=== PATIENT | female | born 1940 | race Caucasian/White ===

== ENCOUNTER → 2017-11-24 14:33 | Outpatient (CLI) | payer MEDICARE, SELFPAY ==
--- NOTE | 2017-11-24 14:45 | RAD_ITS ---
STUDY: X-RAY CHEST REASON FOR EXAM: Female, 77 years old. Shortness of breath TECHNIQUE: Frontal and lateral views of the chest were obtained. COMPARISON: March 10, 2017 FINDINGS: The lungs are underaerated with increased AP diameter on the lateral view. There are increased interstitial markings throughout the lungs. There are no focal airspace opacities. There is no demonstrated pleural abnormality. The cardiac silhouette is normal in size. The mediastinum and hilar regions are unremarkable. Normal visualized pulmonary arteries. There is atherosclerotic calcification of the thoracic aorta. There are diffuse degenerative changes of the visualized spine. There is stable mild compression of a lower thoracic vertebral body. There are degenerative changes in both shoulders. There is no demonstrated abnormality of the visualized upper abdomen. RAD/Chest PA and Lateral IMPRESSION: No acute cardiopulmonary abnormalities or changes. Stable COPD with mild diffuse fibrosis. Electronically Signed: Aparna Dent MD at 23:53 EDT Tel Direct: [phone], Service support ,
[2017-11-24 16:07] LABS: Vitamin D,25 Hydroxy 31.6 ng/mL (29.95-100.01)
[2017-11-24 16:10] LABS: ALB/GLOB Ratio 0.8 RATIO (0.9-2.4); AST(SGOT) 49 U/L (15-37); Alanine Aminotransfer ALT/SGPT 29 U/L (13-56); Albumin, Serum 3.6 g/dL (3.2-5.0); Alkaline Phosphatase 89 U/L (45-117); Anion Gap 8 (5-15); BUN 11 mg/dL (7-18); BUN/Creat Ratio 13.4 RATIO (10-20); Calcium,Total 8.6 mg/dL (8.5-10.1); Chloride 106 mmol/L (98-107); Cholesterol 148 mg/dL (200); Creatinine, Serum 0.82 mg/dL (0.55-1.02); EST Glomerular Filtration Rate 72 mL/min (>60); Est Glom Filt Rate - Afr Amer 87 mL/min (>60); Globulin 4.4 g/dL (2.2-4.2); Glucose 97 mg/dL (74-106); High Density Lipoprotein 73 mg/dL; Magnesium 1.8 mg/dL (1.6-2.6); Potassium 4.4 mmol/L (3.5-5.1); Sodium Level 140 mmol/L (136-145); Triglycerides 102 mg/dL; Very Low Density Lipoprotein 20 mg/dL (5-40)
== END ==
PROVIDERS: Family Provider Internal Medicine; PCP Internal Medicine; Visit Provider Internal Medicine
DX: E78.5 Hyperlipidemia, unspecified (principal); E03.9 Hypothyroidism, unspecified; E55.9 Vitamin D deficiency, unspecified; E83.42 Hypomagnesemia; E87.6 Hypokalemia; J45.909 Unspecified asthma, uncomplicated
CPT/HCPCS: 36415; 71046; 80053; 80061; 82306; 83735; 84443

== ENCOUNTER → 2018-01-13 14:45 | Outpatient (CLI) | payer MEDICARE, SELFPAY ==
--- NOTE | 2018-01-13 14:51 | CT_ITS ---
STUDY: CT CHEST/THORAX WITHOUT CONTRAST REASON FOR EXAM: Female, 77 years old. Restrictive lung disease with hypoxia. RADIATION DOSAGE (If Supplied By Facility): CTDIvol = ( 20.15 ) mGy, DLP = ( 570.74 ) mGycm TECHNIQUE: Transaxial imaging was performed without the administration of intravenous contrast material. Multiplanar coronal and sagittal images were reformatted. Individualized dose optimization techniques were used for this CT. COMPARISON: PA and lateral chest x-ray November 24, 2017. FINDINGS: 5 x 4 x 3 mm noncalcified nodule seen in the superior aspect of the right middle lobe abutting the minor fissure (series 2 image 52, series 602 image 82). 2-3 mm teardrop shaped nodule versus scar seen at the anterior periphery of the right middle lobe on series 2 image 58. There is a lentiform 5 x 3 mm pleural-based nodule in the posterolateral basilar right lower lobe (series 2 image 65, series 602 image 169). 2-3 mm groundglass nodular density seen in the posterolateral right lower lobe just above this (series 2 image 60, series 602 image 176). Linear subsegmental scarring or atelectasis noted in the posterior basilar right lower lobe 1 mm calcified granuloma in the posterior right upper lobe on series 2 image 32. There is focal scarring or subsegmental atelectasis in the inferior left base abutting the diaphragm. There is no demonstrated pleural abnormality. There is borderline cardiomegaly. There is early calcification along the superior aspect of the mitral valve annulus. Normal mediastinum. Normal hilar regions. Normal unenhanced pulmonary arteries. The mid ascending aorta is 4.3 x 4.25 cm (series 602 image 101, series 601 image 130). At the mid aortic arch just beyond the takeoff of left carotid artery the aortic diameter is 3.1 cm. The mid descending thoracic aorta (series 602 image 176, series 601 image 123) is 2.4 x 2.35 cm. There is a severe compression fracture deformity of the T4 vertebrae with some retropulsion of bone into the anterior spinal canal. There are also old healed fracture deformities of the body of the sternum, as well as the posterolateral right fourth rib and posterior left first rib. There are multi-level degenerative changes of the thoracic spine. There is a 10 degree levoscoliosis centered at T9-10. There is no demonstrated abnormality of the visualized upper abdomen. CT/Chest without Contrast IMPRESSION: 1. There are no findings of chronic interstitial fibrosis or emphysematous disease. Minor scarring or subsegmental atelectasis seen in the inferior lung bases. 2. There are a few sub-6 mm pulmonary nodules, as described. Per Fleischner guidelines, in a low risk patient, this does not require specific radiographic follow-up. In a higher-risk patient, one-year follow-up CT is advised to document stability. 3. Borderline cardiac enlargement. 4. There is 4.3 cm fusiform aneurysmal dilatation of the ascending aorta. One might also consider one-year follow-up to document stability here. 5. Severe compression fracture deformity of the T4 vertebra with some retropulsion of bone into the anterior spinal canal. There are also healed fracture deformities of the sternum, posterolateral right fourth rib, and posterior left first rib. There is a 10 degree levoscoliosis centered at T9-10. Electronically Signed: Femi Magana MD at 15:53 EDT , Service support ,
== END ==
PROVIDERS: Family Provider Internal Medicine; PCP Internal Medicine; Visit Provider Internal Medicine Pulmonary Disease
DX: J98.4 Other disorders of lung (principal)
CPT/HCPCS: 71250

== ENCOUNTER → 2018-02-07 12:47 | Outpatient (CLI) | payer MEDICARE, SELFPAY ==
--- NOTE | 2018-02-07 12:53 | ECHOCS_ITS ---
Reason For Study: dyspnea/SOB Procedure This was a 2D Doppler, Color Flow transthoracic echocardiogram. The exam was of poor technical quality due to body habitus. The study was technically difficult. Contrast injection was performed. Exam performed in department. Left Ventricle Normal LV size. Left ventricular systolic function is normal. The estimated ejection fraction is 60 %. No regional wall motion abnormalities noted. Right Ventricle Normal RV size. Normal systolic function. Atria The left atrium is mildly enlarged. Normal right atrium. No doppler evidence for ASD. Mitral Valve There is no mitral annular calcification. Normal mitral valve. Mild (1+) mitral valve insufficiency. Tricuspid Valve Normal tricuspid valve. Mild tricuspid valve insufficiency. Right ventricular systolic pressure estimated to be 38 mmHg. Aortic Valve Trisinus/trileaflet aortic valve. Mild focal aortic valve thickening. Pulmonic Valve The pulmonic valve is not well visualized. Trivial pulmonic valve insufficiency. Great Vessels Normal sized aortic root. Pericardium/Pleural No pericardial effusion. Medication 22 gauge I.V. with prn adaptor inserted into right arm. Diluted definity 3.0ml given slow IV push to enhance endocardial definition. MMode/2D Measurements & Calculations LVIDd: 5.4 cm IVSd: 1.1 cm Ao root diam: 3.4 cm LVIDs: 3.7 cm LVPWd: 1.1 cm LA dimension: 4.0 cm RVDd: 3.0 cm FS: 32.4 % LAV(MOD-bp): 62.0 ml LA A4 area: 21.0 cm2 RA A4 area: 17.8 cm2 LAV(MOD-bp) Indexed: 32.2 ml/m2 LAV(MOD-sp2): 62.5 ml LAV(MOD-sp4): 63.6 ml Doppler Measurements & Calculations MV E max rob: 98.9 cm/sec Lat Peak E' Rob: 10.6 cm/sec Med Peak E' Rob: 9.2 cm/sec MV A max rob: 80.3 cm/sec E/E' lat: 9.3 E/E' med: 10.8 MV E/A: 1.2 Ao V2 max: 179.4 cm/sec LV V1 max: 134.5 cm/sec PA V2 max: 112.5 cm/sec Ao max P.9 mmHg LV V1 max P.2 mmHg TR max rob: 294.6 cm/sec TR max P.7 mmHg Interpretation Summary The study was technically difficult. Contrast injection was performed. Left ventricular systolic function is normal. The estimated ejection fraction is 60 %. The left atrium is mildly enlarged. Mild (1+) mitral valve insufficiency. Mild tricuspid valve insufficiency. Mild focal aortic valve thickening. Trivial pulmonic valve insufficiency. Right ventricular systolic pressure estimated to be 38 mmHg. Transmitral diastolic flow velocities suggest diastolic dysfunction (pseudonormal pattern). Ordering Physician: Sharath Melendez Referring Physician: Sharath Melendez V Performed By: Skylar Leonard, ANOOP, RVT
== END ==
PROVIDERS: Family Provider Internal Medicine; PCP Internal Medicine; Visit Provider Internal Medicine Pulmonary Disease
DX: R06.00 Dyspnea, unspecified (principal); I27.20 Pulmonary hypertension, unspecified
CPT/HCPCS: 93306; Q9957; A4216; C8929

== ENCOUNTER → 2018-04-13 16:57 | Outpatient (CLI) | payer MEDICARE, SELFPAY ==
[2018-04-13 17:37] LABS: Vitamin D,25 Hydroxy 24.3 ng/mL (29.95-100.01)
[2018-04-13 17:38] LABS: ALB/GLOB Ratio 0.9 RATIO (0.9-2.4); AST(SGOT) 21 U/L (15-37); Absolute Lymphocyte Count 1.14 X10^3/ul (0.83-4.51); Absolute Neutrophil Count 3.4 X10^3/uL (2.0-7.7); Alanine Aminotransfer ALT/SGPT 25 U/L (13-56); Albumin, Serum 3.5 g/dL (3.2-5.0); Alkaline Phosphatase 76 U/L (45-117); Anion Gap 8 (5-15); BUN 11 mg/dL (7-18); BUN/Creat Ratio 16.1 RATIO (10-20); Basophil# 0.02 X10^3/uL; Basophil% 0.4 % (0-1); Calcium,Total 8.5 mg/dL (8.5-10.1); Chloride 106 mmol/L (98-107); Cholesterol 148 mg/dL (200); Creatinine, Serum 0.68 mg/dL (0.55-1.02); EST Glomerular Filtration Rate 88 mL/min (>60); Eosinophil# 0.01 X10^3/uL; Eosinophils% 0.2 % (0-5); Est Glom Filt Rate - Afr Amer 107 mL/min (>60); Globulin 3.9 g/dL (2.2-4.2); Glucose 87 mg/dL (74-106); Hematocrit 44.6 % (37-47); Hemoglobin 14.1 g/dl (12.0-15.0); High Density Lipoprotein 79 mg/dL; Lymphocyte # 1.14 X10^3/ul (4.0); Lymphocyte % 22.4 % (19-41); Mean Corp Hgb Conc 31.6 g/gl (32-36); Mean Corpuscular Hgb 31.2 pg (27.0-32.0); Mean Corpuscular Volume 98.7 fL (81-99); Mean Platelet Vol. 10.2 fl (6.2-12.0); Monocyte# 0.51 X10^3/uL; Neutrophil # 3.41 X10^3/uL (2.7-7.7); Neutrophil % 66.8 % (47-70); Platelet Count 235 K/mm3 (150-450); Potassium 3.8 mmol/L (3.5-5.1); Protein, Total 7.4 g/dL (6.4-8.2); RBC Distribution Width CV 14.6 % (11.6-14.6); RBC Distribution Width SD 51.8 fl (35.1-43.9); Red Blood Count 4.52 M/mm3 (4.2-5.4); Sodium Level 142 mmol/L (136-145); Thyroid Stim Hormone (TSH) 0.99 uIU/mL (0.358-3.74); Triglycerides 68 mg/dL; Very Low Density Lipoprotein 14 mg/dL (5-40); White Blood Count 5.1 K/mm3 (4.4-11.0)
[2018-04-13 18:05] LABS: POSITIVE COUNT NO; POSITIVE DIFFERENTIAL NO; POSITIVE MORPHOLOGY NO
== END ==
PROVIDERS: Referring Provider Registered Nurse; Visit Provider Registered Nurse
DX: E78.5 Hyperlipidemia, unspecified (principal); E03.9 Hypothyroidism, unspecified; E55.9 Vitamin D deficiency, unspecified; E83.42 Hypomagnesemia; E87.6 Hypokalemia; Z79.01 Long term (current) use of anticoagulants
CPT/HCPCS: 80053; 80061; 82306; 83735; 84443; 85025

== ENCOUNTER 2018-07-06 06:07 | Day surgery (SDC) | payer MEDICARE, SELFPAY ==
[2018-06-01 10:20] VITALS: BMI 37.6
[2018-07-06 06:38] VITALS: BP 102/46; PULSE 84; RESP 18; TEMP 36.2; O2SAT 95; BMI 36.6
[2018-07-06 06:41] LABS: Prothrombin Time Fingerstick 13.8 SEC (11.9-14.4)
--- NOTE | 2018-07-06 07:30 | COLBX_PTH ---
PATIENT: CULLEN MAYO LOC: EN U#:[id number] AGE/SX: 78/F ROOM: RE07/06/[address]: Dr. Sean cAosta MD : 1940 BED: DIS: 07/06/2018 SPEC #: [id number] RECD: 07/06/18 10:15 STATUS: REUBEN REMeche #: [id number] KARLIE: 07/06/18 07:[address]: Sean Acosta DEPT: SURGICAL PATHOLOGY RECD BY: Patrick Dorantes ENTERED: 07/06/18 11:17 SP TYPE: COLON BX OTHR DR: Dr. Marva Toribio MD Tissues: A - Ascending colon B - Transverse colon Procedures: Surgery Specimen Level IV HEADER OPERATION: Colonoscopy (MAC) PRE-OP DIAGNOSIS: Rectal bleeding; cancer history TISSUE SUBMITTED: A - Ascending colon polyp, B - Transverse colon polyp MICROSCOPIC DIAGNOSIS A. Ascending colon polyp, biopsy: Fragments of tubular adenoma. Fragments of fecal material. B. Transverse colon polyp, biopsy: Fragments of tubular adenoma. 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 MICROSCOPIC DESCRIPTION Slides are reviewed. GROSS DESCRIPTION A - Received in fixative is one container labeled with the patient's name and designated ascending colon. The specimen consists of multiple irregular fragments of light kaminski soft tissue that in aggregate measure 1.5 x 0.5 x 0.1 cm. The specimen is totally submitted in one cassette. B - Received in fixative is one container labeled with the patient's name and designated transverse colon polyp. The specimen consists of multiple irregular fragments of light kaminski soft tissue that in aggregate measure 1.2 x 1.1 x 0.2 cm. The specimen is totally submitted in one cassette. / AM:[place] 07/06/18 TC:1 CPT: 43244 x2
[2018-07-06 07:52] VITALS: BP 102/46; BP 111/60; PULSE 78; RESP 16; TEMP 36.7; O2SAT 94
[2018-07-06 07:55] VITALS: BP 102/46; BP 103/53; PULSE 75; RESP 16; O2SAT 94
--- NOTE | 2018-07-06 07:56 | OP.ENDO_ITS ---
Patient Name: Cha Bills Procedure Date: 07/06/2018 7:28 AM Date of : 1940 Age: 78 Procedure: Colonoscopy Indications: Rectal bleeding Providers: Sean Acosta MD Referring MD: Marva Toribio Medicines: See the Anesthesia note for documentation of the administered medications Patient Profile: This is a 78 year old female. Refer to note in patient chart for documentation of history and physical. Last Colonoscopy: May 2015. Complications: No immediate complications. Procedure: Pre-Anesthesia Assessment: - Prior to the procedure, a History and Physical was performed, and patient medications and allergies were reviewed. The patient's tolerance of previous anesthesia was also reviewed. The risks and benefits of the procedure and the sedation options and risks were discussed with the patient. All questions were answered, and informed consent was obtained. Prior Anticoagulants: The patient has taken Coumadin (warfarin), last dose was 7 days prior to procedure. ASA Grade Assessment: III - A patient with severe systemic disease. After reviewing the risks and benefits, the patient was deemed in satisfactory condition to undergo the procedure. After I obtained informed consent, the scope was passed under direct vision. Throughout the procedure, the patient's blood pressure, pulse, and oxygen saturations were monitored continuously. The adult colonoscope was introduced through the anus and advanced to the cecum, identified by appendiceal orifice and ileocecal valve. The colonoscopy was performed without difficulty. The patient tolerated the procedure well. The quality of the bowel preparation was good. Scope In: 7:33:41 AM Scope Withdrawal Time 0 hours 8 minutes 56 seconds Scope Out: 7:47:48 AM Total Procedure Duration Time 0 hours 14 minutes 7 seconds Findings: Three sessile polyps were found in the transverse colon, proximal transverse colon, distal transverse colon and ascending colon. The polyps were 3 to 7 mm in size. These polyps were removed with a hot snare. Resection and retrieval were complete. The perianal and digital rectal examinations were normal. Pertinent negatives include no palpable rectal lesions. The exam was otherwise without abnormality. Impression: - Three 3 to 7 mm polyps in the transverse colon, in the proximal transverse colon, in the distal transverse colon and in the ascending colon, removed with a hot snare. Resected and retrieved. - The examination was otherwise normal. Recommendation: - Discharge patient to home. - Resume previous diet. - Continue present medications. - Await pathology results. - Repeat colonoscopy in 3 years for surveillance. - Return to my office in 1 week. Procedure Code(s): --- Professional --- 13854, Colonoscopy, flexible; with removal of tumor(s), polyp(s), or other lesion(s) by snare technique Diagnosis Code(s): --- Professional --- D12.3, Benign neoplasm of transverse colon (hepatic flexure or splenic flexure) D12.2, Benign neoplasm of ascending colon K62.5, Hemorrhage of anus and rectum CPT copyright 2017 [employer]. All rights reserved. The codes documented in this report are preliminary and upon credit coordinator review may be revised to meet current compliance requirements. MD Sean Martinez MD 07/06/2018 7:56:05 AM This report has been signed electronically. Number of Addenda: 0 Note Initiated On: 07/06/2018 7:28 AM
[2018-07-06 08:00] VITALS: BP 102/46; BP 112/57; PULSE 75; RESP 16; O2SAT 95
[2018-07-06 08:05] VITALS: BP 102/46; BP 109/57; PULSE 75; RESP 16; TEMP 36.9; O2SAT 95
[2018-07-06 08:33] VITALS: BP 102/46
--- NOTE | 2018-07-26 10:21 | PCM.HP.STD ---
Problem List (1) Rectal bleeding Status: Acute History of Present Illness Date of Admission: 07/06/18 The patient is a 78 year old F for evaluation for colonoscopy per patient has a history of anal cancer. Undergone radiation therapy in the past the last time I did a sigmoidoscopy on her was on May 2015 and it was unremarkable. She has been noting some bright red rectal bleeding on the toilet she has been having normal bowel movements and has not been noticing any pain or discomfort with her bowel movements. She has had some constipation. 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) Z79.01 Essential hypertension (Chronic) I10 Paroxysmal atrial flutter (Acute) I48.92 Paroxysmal atrial fibrillation (Chronic) I48.0 Syncope and collapse (Chronic) R55 Hyperlipidemia (Chronic) E78.5 Hypothyroidism (Chronic) E03.9 Morbid obesity (Chronic) E66.01 Recurrent falls (Chronic) R29.6 DVT (deep venous thrombosis) I82.409 Anxiety F41.9 Cardiomegaly I51.7 GERD (gastroesophageal reflux disease) K21.9 H/O carcinoma in situ of anal canal Z86.008 Rectal bleeding K62.5 Thyroid disorder E07.9 constipation History of cystitis (Resolved) Z87.440 History of forearm fracture (Resolved) Z87.81 closed fracture Atrial flutter (Inactive) I48.92 HTN (hypertension) with goal to be determined (Inactive) I10 History of anxiety (Inactive) Z86.59 History of atrial fibrillation (Inactive) Z86.79 Allergies penicillin G Allergy (Verified 07/14/18 09:14) Itching enoxaparin [From Lovenox] Adverse Reaction (Severe, Verified 07/20/18 09:27) GI upset, itching at injection site codeine Adverse Reaction (Verified 07/14/18 09:14) Upset Stomach Home Medications: Ambulatory Orders Medication Instructions Recorded ALPRAZolam [Xanax] 0.5 mg PO QHS PRN PRN 09/16/15 Potassium Chloride [Klor-Con 10] 10 meq PO BID 09/16/15 Warfarin [Coumadin ([facility])] 1 mg PO TUTH 09/16/15 acetaminophen 325 mg tablet 650 mg PO Q4H PRN 06/28/17 albuterol sulfate HFA 90 1 puff INHALATION Q6H PRN 06/28/17 mcg/actuation aerosol inhaler fluticasone 50 mcg/actuation nasal 1 spray INTRANASAL QDAY PRN 06/28/17 spray,suspension levothyroxine 125 mcg tablet 125 mcg PO QDAY #90 tab 06/28/17 mometasone-formoterol HFA 200 2 puff INHALATION BID 06/28/17 mcg-5 mcg/actuation aerosol inhaler risedronate 35 mg tablet 35 mg PO QWEEK 06/28/17 warfarin 2 mg tablet 2 mg PO SUMOWEFRSA tab 08/30/17 diltiazem CD 240 mg 240 mg PO QDAY #90 cap 01/17/18 capsule,extended release 24 hr atorvastatin 20 mg tablet 20 mg PO QHS #90 tab 04/29/18 cholecalciferol (vitamin D3) 50,000 unit PO QWEEK 06/01/18 50,000 unit capsule Surgical History: Surgical History (Last Reviewed 07/26/18 @ 10:22 by Sean Acosta MD) History of D&C Z98.890 History of cataract removal with insertion of prosthetic lens Z98.49, Z96.1 History of colonoscopy Z98.890 History of tonsillectomy Z98.890, Z90.89 history of anal surgery history of sigmoid colectomy Surgical History: colectomy Smoking Status: Never smoker - *Family History Maternal Family History: Family History (Last Reviewed 07/26/18 @ 10:23 by Sean Acosta MD) Mother Heart disease CAD (coronary artery disease) Father Heart disease CAD (coronary artery disease) Sister CAD (coronary artery disease) COPD (chronic obstructive pulmonary disease) Sister Hypertension Review of Systems Constitutional: Denies: Chills, Fever, Weight Change Cardiovascular: Denies: Chest Pain, Chest Pressure, Chest Tightness, Palpitations Respiratory: Denies: Cough, Hemoptysis, Shortness of breath at rest, Shortness of breath upon exertion, Wheezing Gastrointestinal: Denies: Abdominal Pain, Constipation, Diarrhea, Hematemesis, Nausea, Melena, Vomiting VTE Information - Inpt Only VTE Present on Admission: No VTE Mechan Device Prophylaxis: None VTE Pharm Prophylaxis ordered?: No Reason prophylaxis not ordered:: Treatment Not Indicated - Physical Exam General: Alert, Oriented x3 Lungs: Clear to auscultation Cardiovascular: Regular rate, Regular Rhythm, No murmurs Abdomen: Bowel Sounds Present, Soft, Non Tender, Non-Distended, Obese Vital Signs Temp Pulse Resp BP Pulse Ox 98.4 F 75 16 109/57 L 95 07/06/18 08:05 07/06/18 08:05 07/06/18 08:05 07/06/18 08:05 07/06/18 08:05 Oxygen Delivery Method Room Air Weight: 206 lb 9.17 oz Body Mass Index (BMI) 36.6 Assessment/Plan All Active Problems (Last Reviewed 07/26/18 @ 10:22 by Sean Acosta MD) Rectal bleeding (Acute) Paroxysmal atrial flutter (Acute) Lung nodule (Acute) Ascending aortic aneurysm (Acute 01/13/18) History of cystitis (Resolved) History of forearm fracture (Resolved) My plan is to perform a colonoscopy on the patient. Risk and benefits have been reviewed in great detail with the patient's all questions asked of been answered and she agrees to proceed.
--- OUTSIDE RECORDS SUMMARY | 2018-10-07 07:35 | XMS RPT_ITS ---
:1940 Author Organization [place] Support Name Relationship Address Phone MARLEN BILLS Unavailable [address] + [place] [address] KAYLA, ADRIAN Unavailable . + [place] [address] R Unavailable Unavailable Unavailable FORESTAL, MARLEN Unavailable [address] + [place] [address] KAYLA, ADRIAN Unavailable . + [place] [address] R Unavailable Unavailable Unavailable FORESTAL, MARLEN Unavailable [address] + [place] [address] KAYLA, ADRIAN Unavailable . + [place] [address] R Unavailable Unavailable Unavailable FORESTAL, MARLEN Unavailable [address] + [place] [address] KAYLA, ADRIAN Unavailable . + [place] [address] R Unavailable Unavailable Unavailable FORESTAL, MARLEN Unavailable [address] + [place] [address] KAYLA, ADRIAN Unavailable . + [place] [address] R Unavailable Unavailable Unavailable FORESTAL, MARLEN Unavailable [address] + [place] [address] KAYLA, ADRIAN Unavailable . + [place] [address] R Unavailable Unavailable Unavailable FORESTAL, MARLEN Unavailable [address] + [place] [address] KAYLA, ADRIAN Unavailable . + [place] [address] R Unavailable Unavailable Unavailable FORESTAL, MARLEN Unavailable [address] + [place] [address] KAYLA, ADRIAN Unavailable Unavailable + [place] [address] R Unavailable Unavailable Unavailable FORESTAL, MARLEN Unavailable [address] + [place] [address] KAYLA, ADRIAN Unavailable Unavailable + [place] [address] R Unavailable Unavailable Unavailable FORESTAL, MARLEN Unavailable [address] + [place] [address] KAYLA, ADRIAN Unavailable . + [place] [address] R Unavailable Unavailable Unavailable FORESTAL, MARLEN Unavailable [address] + [place] [address] KAYLA, ADRIAN Unavailable Unavailable + R Unavailable Unavailable Unavailable FORESTAL, MARLEN Unavailable [address] + [place] [address] KAYLA, ADRIAN Unavailable Unavailable + R Unavailable Unavailable Unavailable FORESTAL, MARLEN Unavailable [address] + [place] [address] KAYLA, ADRIAN Unavailable Unavailable + R Unavailable Unavailable Unavailable FORESTAL, MARLEN Unavailable [address] + [place] [address] KAYLA, ADRIAN Unavailable Unavailable + [place] [address] R Unavailable Unavailable Unavailable FORESTAL, MARLEN Unavailable [address] + [place] [address] R Unavailable Unavailable Unavailable FORESTAL, MARLEN Unavailable [address] + [place] [address] R Unavailable Unavailable Unavailable FORESTAL, MARLEN Unavailable [address] + [place] [address] R Unavailable Unavailable Unavailable FORESTAL, MARLEN Unavailable [address] + [place] [address] R Unavailable Unavailable Unavailable Care Team Providers Name Role Phone JESSICA FREGOSO (LIZBETH) Attending Unavailable VEL SANDERSON Referring Unavailable JESSICA FREGOSO (LIZBETH) Attending Unavailable GANTA, VEL Referring Unavailable Ganta, Vel Attending Unavailable West, Sean Attending Unavailable Ganta, Vel Referring Unavailable Ganta, Vel Attending Unavailable Ganta, Vel Attending Unavailable DeFinis, Marleni Attending Unavailable Najma Davis Attending Unavailable Ganta, Vel Referring Unavailable Ganta, Vel Primary Care Unavailable Ganta, Vel Attending Unavailable Ganta, Vel Primary Care Unavailable Ganta, Vel Referring Unavailable Sibilia, Sharath Consulting Unavailable , GUNNER Consulting Unavailable Sibilia, Sharath Attending Unavailable Sibilia, Sharath Referring Unavailable Ganta, Vel Primary Care Unavailable Ganta, Vel Attending Unavailable West, Sean Attending Unavailable Ganta, Vel Referring Unavailable Ganta, Vel Primary Care Unavailable West, Sean Consulting Unavailable Ganta, Vel Attending Unavailable Ganta, Vel Attending Unavailable Sibilia, Sharath Attending Unavailable Sibilia, Sharath Referring Unavailable Ganta, Vel Primary Care Unavailable Tom Mccullough Attending Unavailable Haagen, Jessica Attending Unavailable Haagen, Jessica Referring Unavailable Kika, Sean Attending Unavailable Ganta, Vel Referring Unavailable West, Sean Attending Unavailable Ganta, Vel Primary Care Unavailable Ganta, Vel Referring Unavailable Doris Trent PA-C Attending Unavailable Ganta, Vel Referring Unavailable Ganta, Vel Primary Care Unavailable PROBLEMS PROBLEMS DATE TYPE CONDITION / CODE ATTENDING STATUS SOURCE 04/14/2018 Unknown Z79.01 - [facility] Haagen, Jessica Active [place] (current) use of Community anticoagulants / Hospital Z79.01(ICD-10) Repository 04/14/2018 Unknown E78.5 - Haagen, Jessica Active [place] Hyperlipidemia, Community unspecified / Hospital E78.5(ICD-10) Repository 04/14/2018 Unknown E03.9 - Haagen, Jessica Active [place] Hypothyroidism, Community unspecified / Hospital E03.9(ICD-10) Repository 04/14/2018 Unknown E55.9 - Vitamin D Haagen, Jessica Active [place] deficiency, Community unspecified / Hospital E55.9(ICD-10) Repository 08/02/2015 Active Hyperlipidemia, NA Active [facility] unspecified / Clinic Main E78.5(ICD-10) [place] Repository 07/03/2014 Active Hypomagnesemia / NA Active [facility] E83.42(ICD-10) Clinic Main [place] Repository 07/03/2014 Active [facility] (current) NA Active [facility] use of [facility] Main anticoagulants / [place] Z79.01(ICD-10) Repository 04/13/2018 Active Hypothyroidism, NA Active [facility] unspecified / [facility] Main E03.9(ICD-10) [place] Repository 04/13/2018 Active Hypokalemia / NA Active [facility] E87.6(ICD-10) Clinic Main [place] Repository 04/13/2018 Active Vitamin D NA Active [place] deficiency, [facility] Main unspecified / [facility] E55.9(ICD-10) Repository PROCEDURES PROCEDURES No Procedure Records FoundRESULTS RESULTS HISTORY AND PHYSICAL Observed: 07/26/2018 Status: F Source: [place] EXAM 10:27 AM [facility] REPOSITORY [facility] Medical Records Department [address] [place] [address] History and Physical 07/26/18 1021 MR#: [id number] Acct: [id number] Name: CHA BILLS Rep #: [id number] : 1940 78 From: Sean Acosta MD PCP: Vel Sanderson MD Status: [facility] Location: EN Problem List (1) Rectal bleeding Status: Acute History of Present Illness Date of Admission: 07/06/18 The patient is a 78 year old F for evaluation for colonoscopy per patient has a history of anal cancer. Undergone radiation therapy in the past the last time I did a sigmoidoscopy on her was on May 2015 and it was unremarkable. She has been noting some bright red rectal bleeding on the toilet she has been having normal bowel movements and has not been noticing any pain or discomfort with her bowel movements. She has had some constipation. 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) Essential hypertension (Chronic) Paroxysmal atrial fibrillation (Chronic) Syncope and collapse (Chronic) Hyperlipidemia (Chronic) Hypothyroidism (Chronic) Morbid obesity (Chronic) Recurrent falls (Chronic) Medical History: Medical History (Last Reviewed 07/26/18 @ 10:22 by Sean Acosta MD) [facility] current use of anticoagulant (Chronic) Z79.01 Essential hypertension (Chronic) I10 Paroxysmal atrial flutter (Acute) I48.92 Paroxysmal atrial fibrillation (Chronic) I48.0 Syncope and collapse (Chronic) R55 Hyperlipidemia (Chronic) E78.5 Hypothyroidism (Chronic) E03.9 Morbid obesity (Chronic) E66.01 Recurrent falls (Chronic) R29.6 DVT (deep venous thrombosis) I82.409 Anxiety F41.9 Cardiomegaly I51.7 GERD (gastroesophageal reflux disease) K21.9 H/O carcinoma in situ of anal canal Z86.008 Rectal bleeding K62.5 Thyroid disorder E07.9 constipation History of cystitis (Resolved) Z87.440 History of forearm fracture (Resolved) Z87.81 closed fracture Atrial flutter (Inactive) I48.92 HTN (hypertension) with goal to be determined (Inactive) I10 History of anxiety (Inactive) Z86.59 History of atrial fibrillation (Inactive) Z86.79 Allergies penicillin G Allergy (Verified 07/14/18 09:14) Itching enoxaparin [From Lovenox] Adverse Reaction (Severe, Verified 07/20/18 09:27) GI upset, itching at injection site codeine Adverse Reaction (Verified 07/14/18 09:14) Upset Stomach Home Medications: Ambulatory Orders Medication Instructions Recorded ALPRAZolam [Xanax] 0.5 mg PO QHS PRN PRN 09/16/15 Potassium Chloride [Klor-Con 10] 10 meq PO BID 09/16/15 Surgical History: Surgical History (Last Reviewed 07/26/18 @ 10:22 by Sean Acosta MD) History of D AND C Z98.890 History of cataract removal with insertion of prosthetic lens Z98.49, Z96.1 History of colonoscopy Z98.890 History of tonsillectomy Z98.890, Z90.89 history of anal surgery history of sigmoid colectomy Surgical History: colectomy Smoking Status: Never smoker - *Family History Maternal Family History: Family History (Last Reviewed 07/26/18 @ 10:23 by Sean Acosta MD) Mother Heart disease CAD (coronary artery disease) Father Heart disease CAD (coronary artery disease) Sister CAD (coronary artery disease) COPD (chronic obstructive pulmonary disease) Sister Hypertension Review of Systems Constitutional: Denies: Chills, Fever, Weight Change Cardiovascular: Denies: Chest Pain, Chest Pressure, Chest Tightness, Palpitations Respiratory: Denies: Cough, Hemoptysis, Shortness of breath at rest, Shortness of breath upon exertion, Wheezing Gastrointestinal: Denies: Abdominal Pain, Constipation, Diarrhea, Hematemesis, Nausea, Melena, Vomiting VTE Information - Inpt Only VTE Present on Admission: No VTE Mechan Device Prophylaxis: None VTE Pharm Prophylaxis ordered?: No Reason prophylaxis not ordered:: Treatment Not Indicated - Physical Exam General: Alert, Oriented x3 Lungs: Clear to auscultation Cardiovascular: Regular rate, Regular Rhythm, No murmurs Abdomen: Bowel Sounds Present, Soft, Non Tender, Non-Distended, Obese Vital Signs Temp Pulse Resp BP Pulse Ox 98.4 F 75 16 109/57 L 95 07/06/18 08:05 07/06/18 08:05 07/06/18 08:05 07/06/18 08:05 07/06/18 08:05 Oxygen Delivery Method Room Air Weight: 206 lb 9.17 oz Body Mass Index (BMI) 36.6 Assessment/Plan All Active Problems (Last Reviewed 07/26/18 @ 10:22 by Sean Acosta MD) Rectal bleeding (Acute) Paroxysmal atrial flutter (Acute) Lung nodule (Acute) Ascending aortic aneurysm (Acute 01/13/18) History of cystitis (Resolved) History of forearm fracture (Resolved) My plan is to perform a colonoscopy on the patient. Risk and benefits have been reviewed in great detail with the patient's all questions asked of been answered and she agrees to proceed. 07/26/18 1027 <Electronically signed by Sean Acosta MD> Date Sean Acosta MD Cosigner Signature: Date (if applicable) CC: Vel Sanderson MD; Sean Acosta MD Signed SURGERY VISIT REPORT Observed: 07/18/2018 Status: F Source: [place] 12:53 PM [facility] REPOSITORY [facility] [address] [place] [address] OFFICE VISIT Date of Service: 07/14/18 MR#: [id number] Acct: [id number] Name: CHA BILLS Rep #: [id number] : 1940 Provider: Sean Acosta MD Age/Sex: 78/F Location: [facility] Status: Signed Intake Intake Visit Reasons: Post Op C-Scope 07/06 Chief Complaint: post colonoscopy Heater Furnace Required: No Is patient in pain?: No Allergies penicillin G Allergy (Verified 07/14/18 09:14) Itching codeine Adverse Reaction (Verified 07/14/18 09:14) Upset Stomach Medications ALPRAZolam [Xanax] 0.5 mg PO QHS PRN PRN 09/16/15 [History Confirmed 07/14/18] Potassium Chloride [Klor-Con 10] 10 meq PO BID 09/16/15 [History Confirmed 07/14/18] Warfarin [Coumadin (PBKC)] 1 mg PO TUTH 09/16/15 [History Confirmed 07/14/18] acetaminophen 325 mg tablet 650 mg PO Q4H PRN 06/28/17 [History Confirmed 07/14/18] albuterol sulfate HFA 90 mcg/actuation aerosol inhaler 1 puff INHALATION Q6H PRN 06/28/17 [History Confirmed 07/14/18] fluticasone 50 mcg/actuation nasal spray,suspension 1 spray INTRANASAL QDAY PRN 06/28/17 [History Confirmed 07/14/18] levothyroxine 125 mcg tablet 125 mcg PO QDAY #90 tab 06/28/17 [Rx Confirmed 07/14/18] mometasone-formoterol HFA 200 mcg-5 mcg/actuation aerosol inhaler 2 puff INHALATION BID 06/28/17 [History Confirmed 07/14/18] risedronate 35 mg tablet 35 mg PO QWEEK 06/28/17 [History Confirmed 07/14/18] warfarin 2 mg tablet 2 mg PO SUMOWEFRSA tab 08/30/17 [History Confirmed 07/14/18] diltiazem CD 240 mg capsule,extended release 24 hr 240 mg PO QDAY #90 cap 01/17/18 [Rx Confirmed 07/14/18] atorvastatin 20 mg tablet 20 mg PO QHS #90 tab 04/29/18 [Rx Confirmed 07/14/18] cholecalciferol (vitamin D3) 50,000 unit capsule 50,000 unit PO QWEEK 06/01/18 [History Confirmed 07/14/18] Enoxaparin [Lovenox] 90 mg SUBCUT Q12@0600,1800 07/04/18 [History Confirmed 07/14/18] Is last menstrual period known: No Post menopausal: Yes Patient : No Subjective Details: Patient status post a colonoscopy on 07/06/2018. Patient was noted to have tubular adenomas of both the transverse and ascending colon. Rest of her colonoscopy was unremarkable. He is not complaining of any abdominal pain at this Objective Details: Patient's abdomen is soft and obese Assessment AND Plan Problems 1. Colon polyp K63.5 Plan Patient will need to have another colonoscopy in 3 years Coding Level of Care Code Off vis,est,level 2 Diagnoses Colon polyp K63.5 07/18/18 1253 <Electronically signed by Sean Acosta MD> Date Sean Acosta MD [facility] Signature: Date (if applicable) CC: Vel Sanderson MD CNPN Observed: 07/07/2018 Status: COMPLETED Source: [place] 12:00 AM [facility] REPOSITORY Telephone (PHARMN) CHA BILLS ([id number]) 1940 F Date Time Provider Department 07/07/18 PHARMACIST PHARMN During your visit today, we recorded the following information about you: Virginia Nelson 07/07/2018 11:03 AM Signed Spoke with Kaylan (ph: [phone]) from Dr. Elam'as office who advised she received a fax today with patient's INR results from yesterday (07/06/2018) INR result was 1.2. Routing to pharmacist to review. Yamilet Nelson LPN Pharmacy, Anticoagulation Clinic [facility] 07/07/2018 11:27 AM Signed Spoke to patient re: LMWH Bridge S/p (Name of procedure - colonoscopy on 07/06) Patient cleared to resume anticoagulation by Physician performing the procedure Plan: Patient advised to take warfarin (as per previous pharmacist note) Patient advised to take warfarin: 4mg Th / 3mg SSM (07/07-07/10) Patient advised to take enoxaparin 90mg q12h - she has about 10 syringes Next INR draw: home INR on 07/11. Pt was advised to call if there are any problems with bleeding/bruising or changes in medications or diet. Patient verbalized understanding of instructions. ? Pt is still not currently enrolled in [employer]. She uses [employer]. Will reach out to [employer]. Lora Ascencio, [facility] 07/07/2018 1:31 PM Signed Un update from [employer] on Cha's joining the [employer] home INR monitoring program. Per [employer], patient needs to call [facility] and cancel program to join [employer]. The patient was contacted and advised to contact [facility] for [employer] to take over and the anticoagulation clinic INR monitoring program to do the follow ups. The patient refused, she was under the impression that [employer] will cancel her [facility] program. The patient states that after the year, she might consider joining the program; meanwhile, she will continue with [facility]. The anticoagulation clinic will not contact Cha; and she will be sent back to the care of her physician. The patient verbalized understanding of instructions. Virginia Nelson 07/07/2018 2:12 PM Signed Patient stated her carpet inspector finished Dr. Welch in [place] will continue to monitor her INR. Pharmacy Anticoagulation Clinic Discharge completed at this time. Patient may be re-referred, if deemed appropriate. Yamilet Nelson LPN Pharmacy, Anticoagulation Clinic Casie Hatfield RN 07/07/2018 3:25 PM Signed Patient calls to confirm that yes, Dr. Mccullough will be handling her INR from now on but that she still loves Dr. Sanderson. Casie Hatfield RN Allergies As of Date: 07/07/2018 Noted Allergy Reaction CODEINE 10/13/2010 16 - Unknown PENICILLINS 10/13/2010 16 - Unknown Date Reviewed: 04/13/2018 Reviewed by: Lynnette Skelton Mold Inspector - Fully Assessed Reason for Visit: PAC TRANSFER OF CARE [Other] Reason For Visit History Recorded Prescriptions as of 07/07/2018 Sig: * ACETAMINOPHEN 500 MG TABLET Take by mouth as needed. * ALBUTEROL SULFATE HFA 90 MCG/* Inhale 1 Puff as instructed o* ALPRAZOLAM 0.5 MG TABLET Take 1 tablet by mouth at bed* VITAMIN C ORAL Take by mouth. ATORVASTATIN 20 MG TABLET Take 1 tablet by mouth once d* VITAMIN D-3 ORAL Take by mouth. CHOLECALCIFEROL (VITAMIN D3) * Take 1 capsule by mouth once * DILTIAZEM SR 240 MG 24 HR CAP Take 240 mg by mouth once fatimah* DOCUSATE SODIUM 100 MG CAPSULE Take 1 capsule by mouth twice* ENOXAPARIN 100 MG/ML SUBCUTAN* Inject 0.9 mL subcutaneously * * FLUTICASONE 50 MCG/ACTUATION * Use 1 Hope in each nostril o* LEVOTHYROXINE 125 MCG TABLET Take 150mcg daily on the week* LEVOTHYROXINE 150 MCG TABLET Take 150mcg daily on the week* MOMETASONE-FORMOTEROL HFA 200* Inhale 2 Inhalation as instru* POTASSIUM CHLORIDE ER 10 MEQ * Take 1 capsule by mouth twice* RISEDRONATE 35 MG TABLET Take 1 tablet by mouth once e* WARFARIN 1 MG TABLET 2mg MonFri and 1mg other days WARFARIN 2 MG TABLET Take 1 tablet by mouth once d* Problem List As Of Date 07/07/2018 Noted Resolved Other symptoms involving digestive system(787.9*INVALID FOR*12/20/2013 Non-healing surgical wound [T81.89XA] INVALID FOR*12/20/2013 Other malignant neoplasm of other specified sit*INVALID FOR*12/20/2013 Anal cancer (HCC) [C21.0] INVALID FOR* More... DVT (deep venous thrombosis) (HCC) [I82.409] INVALID FOR*10/21/2016 More... Urinary frequency [R35.0] INVALID FOR*12/20/2013 Hypomagnesemia [E83.42] INVALID FOR* More... Unspecified malignant neoplasm of other specifi*INVALID FOR*12/20/2013 Abnormal barium enema [R93.3] INVALID FOR*12/20/2013 Abnormal x-ray [R93.89] INVALID FOR*12/20/2013 Antithrombin deficiency (HCC) [D68.59] INVALID FOR* More... Post-traumatic wound infection (HCC) [T14.8XXA,*INVALID FOR* More... Wound discharge [T14.8XXA] INVALID FOR*12/20/2013 More... Chronic anticoagulation [Z79.01] INVALID FOR* More... Anxiety [F41.9] INVALID FOR* More... A-fib (HCC) [I48.91] INVALID FOR* More... [place] (obstructive sleep apnea) [G47.33] INVALID FOR* More... COPD (chronic obstructive pulmonary disease) (H*INVALID FOR* More... Hypothyroid [E03.9] INVALID FOR* More... Hyperlipidemia with target LDL less than 100 [E*INVALID FOR* More... SUMMARY [V999.95] INVALID FOR* More... Preventive measure [Z29.9] INVALID FOR* More... Hearing loss [H91.90] INVALID FOR* More... Insomnia [G47.00] INVALID FOR* More... Tremors of nervous system [R25.1] INVALID FOR* More... Cancer of skin, squamous cell [C44.92] INVALID FOR* Accidental fall [W19.XXXA] INVALID FOR* More... Age-related osteoporosis with current pathologi*INVALID FOR* More... Vitamin D deficiency [E55.9] INVALID FOR* Encounter Status:Closed by LUDIVINA (PHARMACIST)LORA on 07/07/18 OPERATIVE REPORT - Observed: 07/06/2018 Status: F Source: [place] ENDOSCOPY 7:56 AM [facility] REPOSITORY [facility] Medical Records Department [address] [place] [address] Operative Report - Endoscopy MR#: [id number] Acct: [id number] Name: GAELCHA Dane Rep #: [id number] : 1940 78 From: Sean Acosta MD PCP: Vel Sanderson MD Status: [facility] Patient Name: Cha Bills Procedure Date: 07/06/2018 7:28 AM Date of : 1940 Age: 78 Procedure: Colonoscopy Indications: Rectal bleeding Providers: Sean Acosta MD Referring MD: Vel Sanderson Medicines: See the Anesthesia note for documentation of the administered medications Patient Profile: This is a 78 year old female. Refer to note in patient chart for documentation of history and physical. Last Colonoscopy: May 2015. Complications: No immediate complications. Procedure: Pre-Anesthesia Assessment: - Prior to the procedure, a History and Physical was performed, and patient medications and allergies were reviewed. The patient's tolerance of previous anesthesia was also reviewed. The risks and benefits of the procedure and the sedation options and risks were discussed with the patient. All questions were answered, and informed consent was obtained. Prior Anticoagulants: The patient has taken Coumadin (warfarin), last dose was 7 days prior to procedure. ASA Grade Assessment: III - A patient with severe systemic disease. After reviewing the risks and benefits, the patient was deemed in satisfactory condition to undergo the procedure. After I obtained informed consent, the scope was passed under direct vision. Throughout the procedure, the patient's blood pressure, pulse, and oxygen saturations were monitored continuously. The adult colonoscope was introduced through the anus and advanced to the cecum, identified by appendiceal orifice and ileocecal valve. The colonoscopy was performed without difficulty. The patient tolerated the procedure well. The quality of the bowel preparation was good. Scope In: 7:33:41 AM Scope Withdrawal Time 0 hours 8 minutes 56 seconds Scope Out: 7:47:48 AM Total Procedure Duration Time 0 hours 14 minutes 7 seconds Findings: Three sessile polyps were found in the transverse colon, proximal transverse colon, distal transverse colon and ascending colon. The polyps were 3 to 7 mm in size. These polyps were removed with a hot snare. Resection and retrieval were complete. The perianal and digital rectal examinations were normal. Pertinent negatives include no palpable rectal lesions. The exam was otherwise without abnormality. Impression: - Three 3 to 7 mm polyps in the transverse colon, in the proximal transverse colon, in the distal transverse colon and in the ascending colon, removed with a hot snare. Resected and retrieved. - The examination was otherwise normal. Recommendation: - Discharge patient to home. - Resume previous diet. - Continue present medications. - Await pathology results. - Repeat colonoscopy in 3 years for surveillance. - Return to my office in 1 week. Procedure Code(s): --- Professional --- 98809, Colonoscopy, flexible; with removal of tumor(s), polyp(s), or other lesion(s) by snare technique Diagnosis Code(s): --- Professional --- D12.3, Benign neoplasm of transverse colon (hepatic flexure or splenic flexure) D12.2, Benign neoplasm of ascending colon K62.5, Hemorrhage of anus and rectum CPT copyright 2017 [employer] [employer]. All rights reserved. The codes documented in this report are preliminary and upon basic sciences dean review may be revised to meet current compliance requirements. MD Sean Martinez MD 07/06/2018 7:56:05 AM This report has been signed electronically. Number of Addenda: 0 Note Initiated On: 07/06/2018 7:28 AM 07/06/18 0756 Date Sean Acosta MD Cosigner Signature: Date (if indicated) CC: Vel Sanderson MD; Sean Acosta MD Date Dictated: 07/06/18 0728 Date Transcribed: Spray Dry Operator: DP Signed COLON BIOPSY (CHOOSE Observed: 07/06/2018 Status: F Source: [place] SITE) 7:30 AM [facility] REPOSITORY Patient: CHA BILLS : 1940 (78/) Acct Num: [id number] Phys: Sean Acosta MD Unit Num: [id number] Loc: EN Specimen: [id number] Received: 07/06/18 - 1015 Spec Type: COLON BX TISSUES 1 TISSUES: A. Ascending colon B. 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 GROSS DESCRIPTION A - Received in fixative is one container labeled with the patient's name and designated ascending colon. The specimen consists of multiple irregular fragments of light kaminski soft tissue that in aggregate measure 1.5 x 0.5 x 0.1 cm. The specimen is totally submitted in one cassette. B - Received in fixative is one container labeled with the patient's name and designated transverse colon polyp. The specimen consists of multiple irregular fragments of light kaminski soft tissue that in aggregate measure 1.2 x 1.1 x 0.2 cm. The specimen is totally submitted in one cassette. / AM: 07/06/18 TC:1 CPT: 55098 x2 HEADER OPERATION: Colonoscopy (MAC) PRE-OP DIAGNOSIS: Rectal bleeding; cancer history TISSUE SUBMITTED: A - Ascending colon polyp, B - Transverse colon polyp MICROSCOPIC DESCRIPTION Slides are reviewed. MICROSCOPIC DIAGNOSIS A. Ascending colon polyp, biopsy: Fragments of tubular adenoma. Fragments of fecal material. B. Transverse colon polyp, biopsy: Fragments of tubular adenoma. SJ:america 07/07/18 Signed Sid Patel MD 07/07/18 <signature on file> Performed By: #### PCOLBX #### [facility] [address] [place] [address], [id number] PROTIME W/INR Collected: 07/06/2018 Status: F Source: MAJESTIC FINGERSTICK 6:37 AM [facility] REPOSITORY TYPE CODE TESTS RESULT OUT OF RANGE REFERENCE UNITS LAB L9200.1001 11.9-14.4 SEC Normal PROTIME ISTAT 13.8 Result Comment: Reference Range 11.9 - 14.4 LAB L9200.2000 Normal INR ISTAT 1.20 Result Comment: Critical Value > 3.5 Performed By: #### L9200.0000 #### [facility] Point of Care [address] [place], [place] [address] [address] CNPN Observed: 07/04/2018 Status: COMPLETED Source: [place] 12:00 AM [facility] REPOSITORY Telephone (PHARMN) GAELCHA Vela ([id number]) 1940 F Date Time Provider Department 07/04/18 PHARMACIST HOPE During your visit today, we recorded the following information about you: Johnny Guzman LPN, [employer] UNDERWRITER 07/04/2018 1:45 PM Signed Patient contacted PAC concerned that she is getting conflicting information regarding Lovenox dosing, pre and post procedure. She is unclear on dosing and has questions and concerns and would like to speak with Pharmacist directly. Advised that MD performing procedure will need to provide medical clearance to resume Lovenox post procedure based on anticipated amount of bleeding ( if at all) following Colonoscopy. Patient is requesting return call to [phone] to discuss dosing. PT INR (no units) Date Value 06/16/2018 2.8 (EXT) 06/10/2018 2.6 06/04/2018 1.6 Johnny Guzman LPN, Pharmacy Anticoagulation Clinic PENNY ALLRED PHARMACIST 07/04/2018 2:17 PM Signed Called patient to discuss her concerns. Reviewed dosing with her for 07/04-07/06: 07/04?- Enoxaparin 90mg sc q12hrs 07/05?- Enoxaparin 90mg sc morning only 07/06?- Procedure day; resume enoxaparin 90mg sq q12hrs?+ warfarin when directed post-procedure; continue enoxaparin until INR >?2.0 or patient's INR Asked her to inuquire to the non-[facility] physician team that it is acceptable to resume her anticoagulation post-op. Advised that I would reach out to her on Wednesday - 07/06 post-colonoscopy to touch base re: warfarin and Lovenox dosing. Penny Allred, PharmKasie Nelson 07/06/2018 11:17 AM Signed Spoke with patient who stated MD advised her to contact PAC regarding resuming anticoagulation s/p procedure. Patient can be reached at [phone]. Yamilet Nelson LPN Pharmacy, Anticoagulation Clinic PENNY ALLRED, PHARMACIST 07/06/2018 12:02 PM Signed Spoke to patient re: LMWH Bridge S/p (Name of procedure - colonoscopy) today Patient cleared to resume anticoagulation by Physician performing the procedure - non [facility] doctor. She was advised to resume tomorrow - 07/07. Plan: Patient advised to take warfarin: 4mg Th / 3mg SSM (07/07-07/10) Patient advised to take enoxaparin 90mg q12h - she has about 10 syringes Next INR draw: home INR on 07/11. Pt was advised to call if there are any problems with bleeding/bruising or changes in medications or diet. Patient verbalized understanding of instructions. Pt is still not currently enrolled in [employer]. She uses [employer]. Will reach out to [employer]. Penny Allred, PharmD Allergies As of Date: 07/04/2018 Noted Allergy Reaction CODEINE 10/13/2010 16 - Unknown PENICILLINS 10/13/2010 16 - Unknown Date Reviewed: 04/13/2018 Reviewed by: Lynnette Skelton Mold Inspector - Fully Assessed Reason for Visit: Patient Update [9284] Visit Diagnosis:Atrial fibrillation, unspecified type (HCC) [I48.91] Prescriptions as of 07/04/2018 Sig: * ACETAMINOPHEN 500 MG TABLET Take by mouth as needed. * ALBUTEROL SULFATE HFA 90 MCG/* Inhale 1 Puff as instructed o* ALPRAZOLAM 0.5 MG TABLET Take 1 tablet by mouth at bed* VITAMIN C ORAL Take by mouth. ATORVASTATIN 20 MG TABLET Take 1 tablet by mouth once d* VITAMIN D-3 ORAL Take by mouth. CHOLECALCIFEROL (VITAMIN D3) * Take 1 capsule by mouth once * DILTIAZEM SR 240 MG 24 HR CAP Take 240 mg by mouth once fatimah* DOCUSATE SODIUM 100 MG CAPSULE Take 1 capsule by mouth twice* ENOXAPARIN 100 MG/ML SUBCUTAN* Inject 0.9 mL subcutaneously * * FLUTICASONE 50 MCG/ACTUATION * Use 1 Hope in each nostril o* LEVOTHYROXINE 125 MCG TABLET Take 150mcg daily on the week* LEVOTHYROXINE 150 MCG TABLET Take 150mcg daily on the week* MOMETASONE-FORMOTEROL HFA 200* Inhale 2 Inhalation as instru* POTASSIUM CHLORIDE ER 10 MEQ * Take 1 capsule by mouth twice* RISEDRONATE 35 MG TABLET Take 1 tablet by mouth once e* WARFARIN 1 MG TABLET 2mg MonFri and 1mg other days WARFARIN 2 MG TABLET Take 1 tablet by mouth once d* Problem List As Of Date 07/04/2018 Noted Resolved Other symptoms involving digestive system(787.9*INVALID FOR*12/20/2013 Non-healing surgical wound [T81.89XA] INVALID FOR*12/20/2013 Other malignant neoplasm of other specified sit*INVALID FOR*12/20/2013 Anal cancer (HCC) [C21.0] INVALID FOR* More... DVT (deep venous thrombosis) (HCC) [I82.409] INVALID FOR*10/21/2016 More... Urinary frequency [R35.0] INVALID FOR*12/20/2013 Hypomagnesemia [E83.42] INVALID FOR* More... Unspecified malignant neoplasm of other specifi*INVALID FOR*12/20/2013 Abnormal barium enema [R93.3] INVALID FOR*12/20/2013 Abnormal x-ray [R93.89] INVALID FOR*12/20/2013 Antithrombin deficiency (HCC) [D68.59] INVALID FOR* More... Post-traumatic wound infection (HCC) [T14.8XXA,*INVALID FOR* More... Wound discharge [T14.8XXA] INVALID FOR*12/20/2013 More... Chronic anticoagulation [Z79.01] INVALID FOR* More... Anxiety [F41.9] INVALID FOR* More... A-fib (HCC) [I48.91] INVALID FOR* More... SALENA (obstructive sleep apnea) [G47.33] INVALID FOR* More... COPD (chronic obstructive pulmonary disease) (H*INVALID FOR* More... Hypothyroid [E03.9] INVALID FOR* More... Hyperlipidemia with target LDL less than 100 [E*INVALID FOR* More... SUMMARY [V999.95] INVALID FOR* More... Preventive measure [Z29.9] INVALID FOR* More... Hearing loss [H91.90] INVALID FOR* More... Insomnia [G47.00] INVALID FOR* More... Tremors of nervous system [R25.1] INVALID FOR* More... Cancer of skin, squamous cell [C44.92] INVALID FOR* Accidental fall [W19.XXXA] INVALID FOR* More... Age-related osteoporosis with current pathologi*INVALID FOR* More... Vitamin D deficiency [E55.9] INVALID FOR* Encounter Status:Closed by JOHNNY GUZMAN on 07/04/18 SURGERY VISIT REPORT Observed: 06/02/2018 Status: F Source: MAJ[place] 10:53 AM [facility] REPOSITORY [facility] [address] [place] [address] [address] [place] [address] OFFICE VISIT Date of Service: 06/01/18 MR#: [id number] Acct: [id number] Name: CHA BILLS Rep #: [id number] : 1940 Provider: Sean Acosta MD Age/Sex: 78/F Location: [facility] Status: Signed Intake Vital Signs06/01/18 Height 5 ft 0.5 in 06/01/18 Weight: 196 lb 06/01/18 Body Mass Index (BMI) 37.6 Intake Visit Reasons: C-Scope Consult per patient - due in Nov [employer] Furnace Required: No Is patient in pain?: No Allergies penicillin G Allergy (Verified 06/01/18 10:21) Itching codeine Adverse Reaction (Verified 06/01/18 10:21) Upset Stomach Medications ALPRAZolam [Xanax] 0.5 mg PO QHS PRN PRN 09/16/15 [History Confirmed 06/01/18] Potassium Chloride [Klor-Con 10] 10 meq PO BID 09/16/15 [History Confirmed 06/01/18] Warfarin [Coumadin ([facility]KC)] 1 mg PO DAILY 09/16/15 [History Confirmed 06/01/18] acetaminophen 325 mg tablet 650 mg PO Q4H PRN 06/28/17 [History Confirmed 06/01/18] albuterol sulfate HFA 90 mcg/actuation aerosol inhaler 1 puff INHALATION Q6H 06/28/17 [History Confirmed 06/01/18] fluticasone 50 mcg/actuation nasal spray,suspension 1 spray INTRANASAL QDAY PRN 06/28/17 [History Confirmed 06/01/18] levothyroxine 125 mcg tablet 125 mcg PO QDAY #90 tab 06/28/17 [Rx Confirmed 06/01/18] mometasone-formoterol HFA 200 mcg-5 mcg/actuation aerosol inhaler 2 puff INHALATION BID 06/28/17 [History Confirmed 06/01/18] kxzvaeze-ytejjos-zdkc-lutein tablet mcg PO 06/28/17 [History Confirmed 06/01/18] risedronate 35 mg tablet 35 mg PO QWEEK 06/28/17 [History Confirmed 06/01/18] warfarin 2 mg tablet 2 mg PO 2XW tab 08/30/17 [History Confirmed 06/01/18] diltiazem CD 240 mg capsule,extended release 24 hr 240 mg PO QDAY #90 cap 01/17/18 [Rx Confirmed 06/01/18] atorvastatin 20 mg tablet 20 mg PO QHS #90 tab 04/29/18 [Rx Confirmed 06/01/18] cholecalciferol (vitamin D3) 50,000 unit capsule 50,000 unit PO QWEEK 06/01/18 [History Confirmed 06/01/18] imiquimod 5 % topical cream packet 1 applic TOPICAL 5XW 06/01/18 [History Confirmed 06/01/18] [facility] Medical History Essential hypertension (Chronic) Paroxysmal atrial flutter (Acute) Paroxysmal atrial fibrillation (Chronic) Syncope and collapse (Chronic) Hyperlipidemia (Chronic) Hypothyroidism (Chronic) Morbid obesity (Chronic) Recurrent falls (Chronic) DVT (deep venous thrombosis) (Acute) Anxiety (Chronic) Cardiomegaly (Chronic) GERD (gastroesophageal reflux disease) (Chronic) 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) Rectal bleeding (Chronic) Thyroid disorder (Chronic) constipation (Chronic) History of cystitis (Resolved) History of forearm fracture (Resolved) Atrial flutter (Inactive) HTN (hypertension) with goal to be determined (Inactive) History of anxiety (Inactive) History of atrial fibrillation (Inactive) Surgical History History of D AND C (Chronic) History of cataract removal with insertion of prosthetic lens (Chronic) History of colonoscopy (Chronic) History of tonsillectomy (Chronic) history of anal surgery (Chronic) history of sigmoid colectomy (Chronic) Family History Mother Heart disease CAD (coronary artery disease) Father Heart disease CAD (coronary artery disease) Sister CAD (coronary artery disease) COPD (chronic obstructive pulmonary disease) Sister Hypertension Social History Smoking Status: Former smoker alcohol intake: current alcohol intake frequency: holidays/special occasions only Alcohol type: wine substance use type: does not use what type of physical activity do you participate in: none HPI HPI HPI: CHA BILLS, is a 78 F who presents to the office today for evaluation for colonoscopy per patient has a history of anal cancer. Undergone radiation therapy in the past the last time I did a sigmoidoscopy on her was on May 2015 and it was unremarkable. She has been noting some bright red rectal bleeding on the toilet she has been having normal bowel movements and has not been noticing any pain or discomfort with her bowel movements. She has had some constipation. ROS General General: Yes weight change and fatigue; no appetite, colon cancer, breast cancer or weakness HEENT HEENT: No difficulty swallowing, eye injury, eye surgery, swollen glands or hoarseness Endo Endocrine: Yes thyroid disease; no diabetes mellitus, thyroid cancer, Hair loss, heat intolerance or cold intolerance Skin Skin: Yes rash; no changing moles Breast Breast: No left breast lump, right breast lump, nipple discharge, breast pain, abnormal mammogram, abnormal US or breast enlargement Musc Musculoskeletal: No back problems, arthritis, rheumatoid arthritis, gout or joint pain Cardio Cardiovascular: Yes atrial fibrillation; no murmur, pacemaker, heart disease, high blood pressure, heart attack, heart stent, palpitations, shortness of breat with exertion or chest pain Psych Psychiatric: Yes depression and anxiety; no hearing voices Resp Respiratory: Yes cough, Yes COPD, Yes asthma, Yes emphysema, No shortness of breath, No sleep apnea, No wheezing Gastro Gastrointestinal: Yes constipation, No abdominal pain, No nausea or vomiting, No diarrhea, No blood in stool, No acid reflux, No hemorrhoids, No ulcers, No gallbladder problem, No black,tarry stools Pillo Hematologic: Yes blood thinners, Yes blood clots, No blood disorders, No bleeding, No anemia Neuro Neurologic: No system reviewed and no additional complaints, except as docu, No as per HPI, No abnormal walking, No abnormal hearing, No abnormal movements, No abnormal speech, No behavioral changes, No burning sensations, No confusion, No seizure-like activity, No unsteadiness, No dizziness, No localized weakness, No frequent falls, No headache(s), No lack of coordination, No loss of vision, No memory loss, No numbness, No other visual disturbances, No radiating pain, No restless legs, No sensory deficit, No fainting, No tingling, No tremor(s), No weakness, No other Exam Const General: well developed, no acute distress, well hydrated Orientation: oriented to person, oriented to place, oriented to time [facility] Head: normocephalic, atraumatic Ears: external ears normal Mouth: moist mucous membranes Eyes Sclera: sclerae normal Pupils: normal by confrontation Neck Neck: no lymphadenopathy noted Neck mass: No Thyroid: symmetrical, thyroid normal Chest Chest palpation AND inspection: normal inspection of the chest Breast Palpation: No nipple discharge Resp Effort AND Inspection: normal respiratory effort Auscultation: clear to auscultation bilaterally Percussion: percussion normal Cardio Rate: regular rate Rhythm: regular rhythm Heart Sounds: no murmurs GI Inspection: obesity Palpation: soft, no masses, no hepatosplenomegaly, nontender Rectal Exam: other Other: Rectal exam deferred. Extrem General: no clubbing, cyanosis or edema, normal to inspection Assessment AND Plan Problems 1. Rectal bleeding K62.5 2. History of anal cancer Z85.048 Plan I have discussed the above with the patient. I have offered the patient colonoscopy for evaluation. I have explained the risks/benefits of the procedure and described the procedure. I have discussed the risks with the patient, including but not limited to: infection, bleeding, perforation of the GI tract requiring emergency surgery, inability to complete the procedure, injury to any internal organs, complications of anesthesia, etc. - the patient understands and agrees to proceed. I have answered all the patient's questions to the patient's satisfaction and the patient has no further questions. The patient has been given instructions for the colon cleansing preparation. Coding Level of Care Code Off vis,new,level 3 Diagnoses Rectal bleeding K62.5 History of anal cancer Z85.048 06/02/18 1053 <Electronically signed by Sean Acosta MD> Date Sean Acosta MD Cosigner Signature: Date (if applicable) CC: Vel Sanderson MD CNPN Observed: 05/30/2018 Status: COMPLETED Source: [place] 12:00 AM [facility] REPOSITORY Telephone (PHARLN) CHA BILLS ([id number]) 1940 F Date Time Provider Department 05/30/18 CHALINO (PHARMACIST)DAYANARA During your visit today, we recorded the following information about you: PENNY ALLRED, PHARMACIST 05/30/2018 4:42 PM Signed Spoke about the home monitoring testing. She is open to this program but her insurance will need more information from [employer] first. Also, the referral will need signed by Dr. Sanderson as well. Pt spoke to a case manger about this - Kyle Muniz (with [employer]). His number is [phone] ext. [phone]. Penny Allred, PharmD Pharmacy Anticoagulation Clinic Lora Ascencio Pharmacist 06/02/2018 2:24 PM Signed Spoke to patient about referral letter. Pt states that Dr Sanderson signed the letter. (Still pending) Pt states that her INR will be checked on Sunday 06/03 and since Referral letter was not cosigned, pt will call on her INR result to MD cynthia and Reyna. Pt will test INR next week on 06/06 d/t the hols; then pt will test every Helped and sent the home INR questionnaire, while on the phone, patient answered all questions. Pt will be undergoing Colonoscopy in June. See questionnaire. Shae Bauer, PSR 06/06/2018 3:43 PM Signed Pt ret'd call and has questions regarding home INR testing. [phone] PENNY ALLRED PHARMACIST 06/06/2018 4:34 PM Signed Called pt back - advised her that we are waiting on 2 things - her Epic referral to be co-signed, and her prior auth to go through from her insurance to allow for the home monitoring program. Pt advised that we will contact her once those are done. Pt advised to test on Wednesday the as she just tested on 06/04. Hopefully we will be monitoring the results by that time, otherwise the results will still be sent to Dr. Sanderson. Penny Allred, Bettye Pharmacy Anticoagulation Clinic PENNY ALLRED PHARMACIST 06/10/2018 1:30 PM Signed Pt did test toady with results fowraded to Dr. Sanderson. PT INR (no units) Date Value 06/10/2018 2.6 06/04/2018 1.6 05/27/2018 3.1(EXT) She was already called re: results and advised to test in a week (about 06/16). Pt's referral has not been signed yet - status is pending. Dr. Sanderson, if you would like us to manage her INR results at this time, may you signed the pending order for the Anticoag/coumadin clinic pharm - home INR monitoring program? Thanks , Penny Allred, Bettye Pharmacy Anticoagulation Clinic Allergies As of Date: 05/30/2018 Noted Allergy Reaction CODEINE 10/13/2010 16 - Unknown PENICILLINS 10/13/2010 16 - Unknown Date Reviewed: 04/13/2018 Reviewed by: Lynnette Skelton Mold Inspector - Fully Assessed Reason for Visit: Anticoagulation - Initial Consult [144] Cmt: Home INR Test Program Visit Diagnosis:Atrial fibrillation, unspecified type (HCC) [I48.91] Prescriptions as of 05/30/2018 Sig: POTASSIUM CHLORIDE ER 10 MEQ * Take 1 capsule by mouth twice* RISEDRONATE 35 MG TABLET Take 1 tablet by mouth once e* WARFARIN 2 MG TABLET Take 1 tablet by mouth once d* ALPRAZOLAM 0.5 MG TABLET Take 1 tablet by mouth at bed* X CHOLECALCIFEROL (VITAMIN D3) * Take 1 capsule by mouth once * DOCUSATE SODIUM 100 MG CAPSULE Take 1 capsule by mouth twice* WARFARIN 1 MG TABLET 2mg MonFri and 1mg other days LEVOTHYROXINE 150 MCG TABLET Take 150mcg daily on the week* LEVOTHYROXINE 125 MCG TABLET Take 150mcg daily on the week* VITAMIN D-3 ORAL Take by mouth. VITAMIN C ORAL Take by mouth. DILTIAZEM SR 240 MG 24 HR CAP Take 240 mg by mouth once fatimah* ATORVASTATIN 20 MG TABLET Take 1 tablet by mouth once d* MOMETASONE-FORMOTEROL HFA 200* Inhale 2 Inhalation as instru* * FLUTICASONE 50 MCG/ACTUATION * Use 1 Hope in each nostril o* * ACETAMINOPHEN 500 MG TABLET Take by mouth as needed. * ALBUTEROL SULFATE HFA 90 MCG/* Inhale 1 Puff as instructed o* Problem List As Of Date 05/30/2018 Noted Resolved Other symptoms involving digestive system(787.9*INVALID FOR*12/20/2013 Non-healing surgical wound [T81.89XA] INVALID FOR*12/20/2013 Other malignant neoplasm of other specified sit*INVALID FOR*12/20/2013 Anal cancer (HCC) [C21.0] INVALID FOR* More... DVT (deep venous thrombosis) (HCC) [I82.409] INVALID FOR*10/21/2016 More... Urinary frequency [R35.0] INVALID FOR*12/20/2013 Hypomagnesemia [E83.42] INVALID FOR* More... Unspecified malignant neoplasm of other specifi*INVALID FOR*12/20/2013 Abnormal barium enema [R93.3] INVALID FOR*12/20/2013 Abnormal x-ray [R93.89] INVALID FOR*12/20/2013 Antithrombin deficiency (HCC) [D68.59] INVALID FOR* More... Post-traumatic wound infection (HCC) [T14.8XXA,*INVALID FOR* More... Wound discharge [T14.8XXA] INVALID FOR*12/20/2013 More... Chronic anticoagulation [Z79.01] INVALID FOR* More... Anxiety [F41.9] INVALID FOR* More... A-fib (HCC) [I48.91] INVALID FOR* More... SALENA (obstructive sleep apnea) [G47.33] INVALID FOR* More... COPD (chronic obstructive pulmonary disease) (H*INVALID FOR* More... Hypothyroid [E03.9] INVALID FOR* More... Hyperlipidemia with target LDL less than 100 [E*INVALID FOR* More... SUMMARY [V999.95] INVALID FOR* More... Preventive measure [Z29.9] INVALID FOR* More... Hearing loss [H91.90] INVALID FOR* More... Insomnia [G47.00] INVALID FOR* More... Tremors of nervous system [R25.1] INVALID FOR* More... Cancer of skin, squamous cell [C44.92] INVALID FOR* Accidental fall [W19.XXXA] INVALID FOR* More... Age-related osteoporosis with current pathologi*INVALID FOR* More... Vitamin D deficiency [E55.9] INVALID FOR* Follow-up and Disposition History Recorded Encounter Status:Closed by LUDIVINA (PHARMACIST)LORA on 06/02/18 YUMIKO Observed: 04/16/2018 Status: COMPLETED Source: [place] 12:00 AM [facility] REPOSITORY Telephone (INTMWS) CHA BILLS ([id number]) 1940 F Date Time Provider Department 04/16/18 VEL SANDERSON INTMWS During your visit today, we recorded the following information about you: Victoria Castillo CASTILLO 04/16/2018 8:35 AM Signed Last INR: INR 2.2(EXT) 04/15/2018 Current dose of coumadin is: 1mg TuTh and 2mg other days. Last date of dose change: none recent. Previous INR (date and result): 2.3 (EXT) 04/09/2018 Additional Clinical Information or narrative: no VEL SANDERSON MD 04/16/2018 10:55 AM Signed Cont the same and recheck in 1 week Victoria Moon LPN 04/16/2018 11:14 AM Signed Pt notified via answering machine Allergies As of Date: 04/16/2018 Noted Allergy Reaction CODEINE 10/13/2010 16 - Unknown PENICILLINS 10/13/2010 16 - Unknown Date Reviewed: 04/13/2018 Reviewed by: Lynnette Skelton Mold Inspector - Fully Assessed Reason for Visit: Anticoagulation [8] Visit Diagnosis:Atrial fibrillation, unspecified type (HCC) [I48.91] Order(s):PROTHROMBIN TIME/PT [SQPT] Order #: [id number] Prescriptions as of 04/16/2018 Sig: CHOLECALCIFEROL (VITAMIN D3) * Take 1 capsule by mouth once * ALPRAZOLAM 0.5 MG TABLET Take 1 tablet by mouth at bed* WARFARIN 2 MG TABLET Take 1 tablet by mouth once d* RISEDRONATE 35 MG TABLET Take 1 tablet by mouth once e* DOCUSATE SODIUM 100 MG CAPSULE Take 1 capsule by mouth twice* POTASSIUM CHLORIDE ER 10 MEQ * Take 1 capsule by mouth twice* WARFARIN 1 MG TABLET 2mg MonFri and 1mg other days LEVOTHYROXINE 150 MCG TABLET Take 150mcg daily on the week* LEVOTHYROXINE 125 MCG TABLET Take 150mcg daily on the week* VITAMIN D-3 ORAL Take by mouth. VITAMIN C ORAL Take by mouth. DILTIAZEM SR 240 MG 24 HR CAP Take 240 mg by mouth once fatimah* ATORVASTATIN 20 MG TABLET Take 1 tablet by mouth once d* MOMETASONE-FORMOTEROL HFA 200* Inhale 2 Inhalation as instru* * FLUTICASONE 50 MCG/ACTUATION * Use 1 Hope in each nostril o* * ACETAMINOPHEN 500 MG TABLET Take by mouth as needed. * ALBUTEROL SULFATE HFA 90 MCG/* Inhale 1 Puff as instructed o* Problem List As Of Date 04/16/2018 Noted Resolved Other symptoms involving digestive system(787.9*INVALID FOR*12/20/2013 Non-healing surgical wound [T81.89XA] INVALID FOR*12/20/2013 Other malignant neoplasm of other specified sit*INVALID FOR*12/20/2013 Anal cancer (HCC) [C21.0] INVALID FOR* More... DVT (deep venous thrombosis) (HCC) [I82.409] INVALID FOR*10/21/2016 More... Urinary frequency [R35.0] INVALID FOR*12/20/2013 Hypomagnesemia [E83.42] INVALID FOR* More... Unspecified malignant neoplasm of other specifi*INVALID FOR*12/20/2013 Abnormal barium enema [R93.3] INVALID FOR*12/20/2013 Abnormal x-ray [R93.8] INVALID FOR*12/20/2013 Antithrombin deficiency (HCC) [D68.59] INVALID FOR* More... Post-traumatic wound infection (HCC) [T14.8XXA,*INVALID FOR* More... Wound discharge [T14.8XXA] INVALID FOR*12/20/2013 More... Chronic anticoagulation [Z79.01] INVALID FOR* More... Anxiety [F41.9] INVALID FOR* More... A-fib (HCC) [I48.91] INVALID FOR* More... SALENA (obstructive sleep apnea) [G47.33] INVALID FOR* More... COPD (chronic obstructive pulmonary disease) (H*INVALID FOR* More... Hypothyroid [E03.9] INVALID FOR* More... Hyperlipidemia with target LDL less than 100 [E*INVALID FOR* More... SUMMARY [V999.95] INVALID FOR* More... Preventive measure [Z29.9] INVALID FOR* More... Hearing loss [H91.90] INVALID FOR* More... Insomnia [G47.00] INVALID FOR* More... Tremors of nervous system [R25.1] INVALID FOR* More... Cancer of skin, squamous cell [C44.92] INVALID FOR* Accidental fall [W19.XXXA] INVALID FOR* More... Age-related osteoporosis with current pathologi*INVALID FOR* More... Vitamin D deficiency [E55.9] INVALID FOR* Encounter Status:Closed by VICTORIA MOON LPN on 04/16/18 VITAMIN D,25 HYDROXY Collected: 04/13/2018 Status: F Source: ARIANNA 4:59 PM [facility] REPOSITORY TYPE CODE TESTS RESULT OUT OF REFERENCE UNITS RANGE LAB L506.1000 29.95-100.01 ng/mL Low Vitamin D 24.3 25-OH Result Comment: Vitamin D 25(OH) Status Range Deficiency <20 ng/mL (50nmol/L) Insuffciency 20 - 30 ng/mL (50 - 75 nmol/L) Sufficiency 30 - 100 ng/mL (75 - 250 nmol/L) Toxicity >100 ng/mL (>250 nmol/L) Performed By: #### L506.1000 #### [facility] [address] [place], [address] COMPREHENSIVE METABOLIC Collected: 04/13/2018 Status: F Source: ARIANNA [facility] 4:59 PM [facility] REPOSITORY TYPE CODE TESTS RESULT OUT OF RANGE REFERENCE UNITS LAB L501.0100 74-106 mg/dL Normal GLU 87 Result Comment: Please note revised GLUCOSE reference range effective 2017. LAB L501.1000 7-18 mg/dL Normal BUN 11 LAB L501.1100 0.55-1.02 mg/dL Normal CREAT,SERUM 0.68 Result Comment: The validity of the calculated GFR AND GFRAA in patients over 70 years has not been determined. Clinical correlation is essential. LAB L501.1110 >60 mL/min Normal EST GFR 88 Result Comment: Non- GFR Calc LAB L501.1115 >60 mL/min Normal EST GFR - AA 107 Result Comment: GFR Calc LAB L501.1300 10-20 RATIO Normal BUN/CRE 16.1 LAB L501.1500 6.4-8.2 g/dL T Normal PROT 7.4 LAB L501.1800 3.2-5.0 g/dL Normal ALB 3.5 LAB L501.1950 2.2-4.2 g/dL Normal GLOB 3.9 LAB L501.2000 0.9-2.4 RATIO Normal A/G 0.9 LAB L501.2200 8.5-10.1 mg/dL CA Normal 8.5 LAB L501.4100 15-37 U/L Normal AST 21 LAB L501.4305 45-117 U/L Normal ALK P 76 LAB L501.4405 13-56 U/L Normal ALT 25 LAB L501.4600 0.20-1.00 mg/dL T Normal BILI 0.60 LAB L501.5300 136-145 mmol/L NA Normal 142 LAB L501.5600 3.5-5.1 mmol/L K Normal 3.8 LAB L501.5900 98-107 mmol/L CL Normal 106 LAB L501.6100 21.0-32.0 mmol/L Normal CO2 28.0 LAB L501.6200 5-15 Normal GAP 8 Performed By: #### L500.4050, L500.4100, L501.5200, L501.9520 #### [facility] [address] [place], [place], [address] LIPID PROFILE Collected: 04/13/2018 Status: F Source: MAJESTIC 4:59 PM [facility] REPOSITORY TYPE CODE TESTS RESULT OUT OF RANGE REFERENCE UNITS LAB L501.4900 200 mg/dL Normal CHOL 148 Result Comment: <200 mg/dL Desirable 200-240 mg/dL Borderline >240 mg/dL High Risk LAB L501.5000 mg/dL Normal TRIG 68 Result Comment: The drugs N-Acetylcysteine and Metamizole may falsely depress this assay. Serum Triglycerides Reference Interval Normal <150 mg/dL Borderline high 150 - 199 mg/dL High 200 - 499 mg/dL Very High > or = 500 mg/dL LAB L501.6400 mg/dL Normal HDL 79 Result Comment: The drugs N-Acetylcysteine and Metamizole may falsely depress this assay. Reference Range HDL <40 mg/dL Low HDL Cholesterol HDL >or= 60 mg/dL High HDL Cholesterol LAB L501.6500 0-130 mg/dL Normal LDL 55 LAB L501.6600 5-40 mg/dL Normal VLDL 14 Performed By: #### L500.4050, L500.4100, L501.5200, L501.9520 #### [facility] [address] [place], [place], [id number] MAGNESIUM Collected: 04/13/2018 Status: F Source: MAJ[place] 4:59 PM [facility] REPOSITORY TYPE CODE TESTS RESULT OUT OF RANGE REFERENCE UNITS LAB L501.5200 1.6-2.6 mg/dL Normal MG 2.0 Performed By: #### L500.4050, L500.4100, L501.5200, L501.9520 #### [facility] [address] [place], [address] THYROID STIM HORMONE Collected: 04/13/2018 Status: F Source: MAJESTIC (TSH) 4:59 PM [facility] REPOSITORY TYPE CODE TESTS RESULT OUT OF RANGE REFERENCE UNITS LAB L501.9520 0.358-3.74 uIU/mL Normal TSH 0.99 Performed By: #### L500.4050, L500.4100, L501.5200, L501.9520 #### [facility] [address] [facility], [address] CBC W/DIFF, AUTOMATED Collected: 04/13/2018 Status: F Source: MAJ[place] 4:59 PM [facility] REPOSITORY TYPE CODE TESTS RESULT OUT OF RANGE REFERENCE UNITS LAB L100.1000 4.4-11.0 K/mm3 Normal WBC 5.1 LAB L100.1200 4.2-5.4 M/mm3 Normal RBC 4.52 LAB L100.1300 12.0-15.0 g/dl Normal HGB 14.1 LAB L100.1400 37-47 % Normal HCT 44.6 LAB L100.1500 81-99 fL Normal MCV 98.7 LAB L100.1600 27.0-32.0 pg Normal MCH 31.2 LAB L100.1700 32-36 g/gl Low MCHC 31.6 LAB L100.1810 11.6-14.6 % Normal RDW CV 14.6 LAB L100.1820 35.1-43.9 fl High RDW SD 51.8 LAB L100.1900 150-450 K/mm3 Normal PLT 235 LAB L100.2000 6.2-12.0 fl Normal MPV 10.2 LAB L100.2100 47-70 % Normal NEUT% 66.8 LAB L100.2200 19-41 % Normal LY% 22.4 LAB L100.2300 0-10 % Normal MONO% 10.0 LAB L100.2400 0-5 % Normal EO% 0.2 LAB L100.2500 0-1 % Normal BASO% 0.4 LAB L100.2550 0.0-0.9 % Normal IM GRAN % 0.200 Result Comment: IG% - Immature Granulocytes (promyelocytes, myelocytes and metamyelocytes) > 1% indicates that a LEFT SHIFT is Present. LAB L100.2620 2.0-7.7 X10 3/uL Normal Absolute Neut 3.4 LAB L100.2720 0.83-4.51 X10 3/ul Normal Absolute Lymph 1.14 Performed By: #### L100.0100 #### [facility] [address] [place], [address] CBC AND DIFFERENTIAL Collected: 04/13/2018 Status: F Source: [place] 3:[address] [facility] REPOSITORY TYPE CODE TESTS RESULT OUT OF REFERENCE UNITS RANGE LAB WBC 3.70-11.00 k/uL Test WBC sent to [facility]. Result Comment: [facility] RBC 3.90-5.20 m/uL Test sent RBC to [facility]. Result Comment: [facility] HGB 11.5-15.5 g/dL Hemoglobin Test sent to [facility]. Result Comment: [facility] HCT 36.0-46.0 % Hematocrit Test sent to [facility]. Result Comment: [facility] MCV 80.0-100.0 fL Test sent MCV to [facility]. Result Comment: [facility] MCH 26.0-34.0 pG Test sent MCH to [facility]. Result Comment: [facility] MCHC 30.5-36.0 g/dL Test MCHC sent to [facility]. Result Comment: [facility] RDWCV 11.5-15.0 % Test RDW-CV sent to [facility]. Result Comment: [facility] PLTCT 150-400 k/uL Test Platelet Count sent to [facility]. Result Comment: [facility] MPV 9.0-12.7 fL Test sent MPV to [facility]. Result Comment: [facility] RAJNI Recheck Test sent to [facility]. Result Comment: [facility] ANEUT % Test sent to Neut% [facility]. Result Comment: [facility] AANEUT 1.45-7.50 k/uL Test Abs sent to [facility]. Result Comment: [facility] ALYMP % Test sent to Lymph% [facility]. Result Comment: [facility] AALYMP 1.00-4.00 k/uL Test Abs Lymph sent to [facility]. Result Comment: [facility] AMONO % Test sent to Hudspeth% [facility]. Result Comment: [facility] AAMONO <0.87 k/uL Test sent Abs Hudspeth to [facility]. Result Comment: [facility] AEOS % Test sent to Eosin% [facility]. Result Comment: [facility] AAEOS <0.46 k/uL Test sent Abs Eosin to [facility]. Result Comment: [facility] ABASO % [facility] Result Comment: [facility] AABASO <0.11 k/uL Test sent Abs Baso to [facility]. Result Comment: [facility] REVW Test sent to Review [facility]. Result Comment: [facility] CBCCOM Comment Test sent to [facility]. Result Comment: [facility] Performed By: #### LIPB #### [facility] [address] [facility] [phone] COMP METABOLIC PANEL Collected: 04/13/2018 Status: F Source: [place] 3:49 PM [facility] REPOSITORY TYPE CODE TESTS RESULT OUT OF REFERENCE UNITS RANGE LAB TP 6.3-8.0 g/dL Test sent to [facility]. Result Comment: [facility] ALB 3.9-4.9 g/dL Test Albumin sent to [facility]. Result Comment: [facility] CA 8.5-10.2 mg/dL Test Calcium, Total sent to [facility]. Result Comment: [facility] TBIL 0.2-1.3 mg/dL Bilirubin, Test Total sent to [facility]. Result Comment: [facility] ALKP 34-123 U/L Alkaline Test Phosphatase sent to [facility]. Result Comment: [facility] AST 13-35 U/L Test sent AST to [facility]. Result Comment: [facility] GLU 74-99 mg/dL Test sent Glucose to [facility]. Result Comment: [facility] BUN 7-21 mg/dL Test sent BUN to [facility]. Result Comment: [facility] CRET 0.58-0.96 mg/dL Creatinine Test sent to [facility]. Result Comment: [facility] NA 136-144 mmol/L Test Sodium sent to [facility]. Result Comment: [facility] K 3.7-5.1 mmol/L Test Potassium sent to [facility]. Result Comment: [facility] CL 97-105 mmol/L Test Chloride sent to [facility]. Result Comment: [facility] CO2 22-30 mmol/L Test sent CO2 to [facility]. Result Comment: [facility] AGAP 9-18 mmol/L Test sent Anion Gap to [facility]. Result Comment: [facility] ALT 7-38 U/L Test sent to ALT [facility]. Result Comment: [facility] GFRAA eGFR- Amer. Test sent to [facility]. Result Comment: [facility] GFRNAA . eGFR-All Test sent Other Races to [facility]. Result Comment: [facility] GFRPED eGFR-Ped. Test sent Factor to [facility]. Result Comment: [facility] Performed By: #### LIPB #### [facility] [address] [place] [address] MAGNESIUM Collected: 04/13/2018 Status: F Source: [place] 3:49 PM [facility] REPOSITORY TYPE CODE TESTS RESULT OUT OF REFERENCE UNITS RANGE LAB MG 1.7-2.3 mg/dL Test Magnesium sent to [facility]. Result Comment: [facility] Performed By: #### LIPB #### [facility] [address] [facility] [phone] TSH Collected: 04/13/2018 Status: F Source: [place] 3:49 PM [facility] REPOSITORY TYPE CODE TESTS RESULT OUT OF REFERENCE UNITS RANGE LAB TSH 0.400-5.500 uU/mL Test TSH sent to [facility]. Result Comment: [facility] Performed By: #### LIPB #### [facility] [address] [facility] [phone] VITAMIN D 25 HYDROXY Collected: 04/13/2018 Status: F Source: [place] 3:[address] [facility] REPOSITORY TYPE CODE TESTS RESULT OUT OF REFERENCE UNITS RANGE LAB VITD 31.0-80.0 ng/mL Test Vitamin D 25 sent to [facility]. Result Comment: [facility]redited [facility] Performed By: #### LIPB #### [facility] [address] [facility] [phone] LIPID PANEL, BASIC Collected: 04/13/2018 Status: F Source: [place] 3:49 PM [facility] REPOSITORY TYPE CODE TESTS RESULT OUT OF REFERENCE UNITS RANGE LAB CHOL <200 mg/dL Cholesterol WENT TO [facility] TRIGLY <150 mg/dL Triglyceride WENT TO [facility] HDL >39 mg/dL HDL-Cholesterol WENT TO [facility] LDL <100 mg/dL LDL-Cholesterol WENT TO [facility] NONHDL 90-159 mg/dL Non HDL Cholesterol WENT TO [facility] LAB FT hrs Fasting Time 20 LAB VLDL <30 mg/dL VLDL Cholesterol WENT TO [facility] LAB TCHDL <5.10 TC:HDL Ratio WENT TO [facility] LAB LDLHDL <2.54 LDL:HDL Ratio WENT TO [facility] Performed By: #### LIPB #### [facility] [address] [facility] [phone] PROGRESS Observed: 04/13/2018 Status: COMPLETED Source: [place] 2:[address] [facility] REPOSITORY HNO ID: [id number] Author: Jessica Fregoso Service: (none) Author Type: Nurse Practitioner Type: Progress Notes Filed: 04/13/2018 3:57 PM Note Text: This is a 78 year old female who presents today with: Patient presents with: Recheck HISTORY OF PRESENT ILLNESS: Cha Bills is a 78 year old female. Patient presents with: Recheck ? COPD Follows with pulm. Refers that she had a chest Ct and had a couple of nodules. To follow-up in a year. She also has an appt for pulm testing next week and a follow- up with pulmonology scheduled on 05/02. ? Sleep Apnea. Had repeat sleep study -- doesn't have sleep apnea. Pulmonology did start a little O2 overnight. ? ? A. Fib Follows with coag clinic. Follows with cardiology - has been seen in the last 6 months -- returns at the end of May for recheck. No problems with coumadin. No abnormal bleeding. No chest pain. No palpitations. Constipation No futher constipation. Scheduled for colonoscopy No hematochezia/melena. ? Hypothyroidism + hair falling out. Noticing thinning. Some looser stools. Very dry skin. Hyperlipidemia Due for labs. No muscle/joint pains. Insomnia/anxiety Continues xanax at bedtime. No misuse. 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 - Mental disorder anxiety - Obstructive sleep apnea (adult) (pediatric) - Osteopenia - Snoring - Thyroid disorder hypothyroidism - Vitamin D deficiency PAST SURGICAL HISTORY Procedure Laterality Date - CATARACT EXTRACTION HX 05/2013 Left Eye - CATARACT EXTRACTION HX 07/2013 Right Eye - COLONOSCOP W/ OR W/O [email or web address] SPEC 07/01/2011 Colonoscopy - COLONOSCOP W/ OR W/O [facility] [[email or web address]] SPEC 05/22/2015 flexible sigmoidoscopy - DANDC, DIAG AND/OR THERAPEUTIC 11/04/2010 - PAST SURGICAL HISTORY OF Dental surgery - PAST SURGICAL HISTORY OF 10/2010 Removal of squamous cell cancer perianal area - PAST SURGICAL HISTORY OF 04/26/12 Sigmoid colectomy - REMOVAL OF TONSILS,<12 Y/O Tonsillectomy ALLERGIES Codeine; Penicillins MEDICATIONS Current Outpatient Prescriptions: warfarin (COUMADIN) 2 mg tablet Take 1 tablet by mouth once daily. Take as directed. risedronate (ACTONEL) 35 mg tablet Take 1 tablet by mouth once each week. docusate sodium (COLACE) 100 mg capsule Take 1 capsule by mouth twice daily as needed. potassium chloride SR (MICRO-K) 10 mEq CR capsule Take 1 capsule by mouth twice daily. warfarin (COUMADIN) 1 mg tablet 2mg MonFri and 1mg other days levothyroxine (SYNTHROID) 150 mcg tablet Take 150mcg daily on the weekdays, and 125mcg on the weekends. Take on an empty stomach, for thyroid. levothyroxine (SYNTHROID) 125 mcg tablet Take 150mcg daily on the weekdays, and 125mcg on the weekends. Take on an empty stomach, for thyroid. CALCIUM CARBONATE/VITAMIN D3 (VITAMIN D-3 ORAL) Take by mouth. ASCORBIC ACID (VITAMIN C ORAL) Take by mouth. diltiazem CD (CARDIZEM CD, CARTIA XT) 240 mg 24 hr capsule Take 240 mg by mouth once daily. atorvastatin (LIPITOR) 20 mg tablet Take 1 tablet by mouth once daily. Mometasone-Formoterol (DULERA) 200-5 mcg/actuation HFAA Inhale 2 Inhalation as instructed twice daily. fluticasone 50 mcg/actuation nasal spray Use 1 Hope in each nostril once daily. acetaminophen (TYLENOL EXTRA STRENGTH) 500 mg tablet Take by mouth as needed. albuterol HFA (VENTOLIN HFA) 90 mcg/actuation INHALATION inhaler Inhale 1 Puff as instructed once daily as needed. No current facility-administered medications for this visit. FAMILY HISTORY Problem Relation Age of Onset - Heart Mother - Heart Father - other (diabetic [Other]) Maternal Grandmother Social History Marital status: Spouse name: Years of education: Number of children: Social History Main Topics Smoking status: Never Smoker Smokeless tobacco: Never Used Alcohol use: Yes 0.6 oz/week Glasses of wine: 1 per week Comment: 1 glass weekly on Sundays Drug use: No EXAM: BP 124/76 (BP Site: Left Arm, BP Position: Sitting, BP Cuff Size: Regular Adult) Pulse 68 Resp 12 Wt 90.3 kg (199 lb) BMI 34.70 kg/m? PHYSICAL EXAM: General Appearance: Well appearing, alert, in no acute distress, well-hydrated, well nourished.. Skin: Skin color, texture, turgor normal, no suspicious rashes or lesions. Head: Normocephalic, no masses, lesions, tenderness or abnormalities. Eyes: Anicteric sclera. Extraocular movements are intact. . Neck: Supple, no adenopathy; thyroid symmetric, normal size, no bruits. Lungs: Lungs clear to auscultation. No wheezing, rhonchi, rales. Heart: Positive findings: irregular rhythm Extremities: No deformities, trace ankle edema, No skin discoloration, clubbing or cyanosis. Good capillary refill. . ASSESSMENT/PLAN: 1. Atrial fibrillation, unspecified type (HCC) - ICD9: 427.31, ICD10: I48.91 (primary diagnosis) Continue to follow with coag clinic and cardiology. 2. Chronic obstructive pulmonary disease, unspecified COPD type (HCC) - ICD9: 496, ICD10: J44.9 Continue to follow with pulm. 3. SALENA (obstructive sleep apnea) - ICD9: 327.23, ICD10: G47.33 Reports no longer has sleep apnea. However did start wearing home O2 at bedtime. 4. Need for vaccination - ICD9: V05.9, ICD10: Z23 - ADMIN OF INFLUENZA VACCINE - INFLUENZA SEASONAL HIGH DOSE AGE 65+ 5. Screening breast examination - ICD9: V76.10, ICD10: Z12.31 - Set up for mammogram, yearly mammogram recommended - Follow up for annual exam in one year. - [place] SCREENING 6. Hypomagnesemia - ICD9: 275.2, ICD10: E83.42 - MAGNESIUM BLD 7. Chronic anticoagulation - ICD9: V58.61, ICD10: Z79.01 - CBC + DIFF 8. Hypothyroidism, unspecified type - ICD9: 244.9, ICD10: E03.9 - check TSH today - TSH BLD 9. Hyperlipidemia with target LDL less than 100 - ICD9: 272.4, ICD10: E78.5 - to be determined upon return of lab results - Continue current medication. - LIPID PANEL BASIC - COMP METABOLIC PANEL Discussed treatment plan and patient voices understanding. Patient's questions answered appropriately. Medications and potential side effects were discussed and patient voices understanding. Return to the office as scheduled or as needed for worsening/no improvement. Jessica Fregoso APRN.TRANSPORTATION MAINTENANCE SPECIALIST PROGRESS Observed: 04/13/2018 Status: COMPLETED Source: [place] 2:[address] [facility] [place] REPOSITORY HNO ID: [id number] Author: Lynnette Skelton [facility] Service: (none) Author Type: (none) Type: Progress Notes Filed: 04/13/2018 3:57 PM Note Text: Influenza Vaccine Documentation: ? Patient is identified by name and date of : Yes ? Patient is older than 6 months of age: Yes ? Patient denies a severe allergy to any vaccine component or to a previous dose of influenza vaccine: Yes FOR EGG ALLERGY CONCERNS, REFER TO PROVIDER. ? Denies allergy to gelatin, formaldehyde, thimerosol :Yes ? Patient is afebrile and not moderately or severely ill: Yes ? Does the patient have a history of Guillain ?[place] Syndrome (a severe paralytic illness): No ? Denies bone marrow transplant prior 6 months or solid organ transplant prior 3 months: Yes ? Denies a history of fainting after a prior injection or medical procedure? Yes If patient has fainted in the past, the CDC recommends sitting or lying down for 15 minutes after the vaccination. ? VIS sheet provided: Yes ? See Immunization Form in [facility] for details of immunizations administered today. If patient reports dizziness, vision changes or ringing in the ears post vaccination ? please have patient sit or lie down for 15 minutes. CNOV Observed: 04/13/2018 Status: COMPLETED Source: [place] 2:40 PM [facility] REPOSITORY [facility]A BILLS ([id number]) 1940 F Date Time Provider Department 04/13/18 2:40 PM JESSICA FREGOSO ([facility]) [facility] During your visit today, we recorded the following information about you: Pulse Respiration Blood pressure Weight 68/minute 12/minute 124/76 90.3 kg Lynnette Skelton [facility] 04/13/2018 3:57 PM Signed Influenza Vaccine Documentation: ? Patient is identified by name and date of : Yes ? Patient is older than 6 months of age: Yes ? Patient denies a severe allergy to any vaccine component or to a previous dose of influenza vaccine: Yes FOR EGG ALLERGY CONCERNS, REFER TO PROVIDER. ? Denies allergy to gelatin, formaldehyde, thimerosol :Yes ? Patient is afebrile and not moderately or severely ill: Yes ? Does the patient have a history of Guillain ?[place] Syndrome (a severe paralytic illness): No ? Denies bone marrow transplant prior 6 months or solid organ transplant prior 3 months: Yes ? Denies a history of fainting after a prior injection or medical procedure? Yes If patient has fainted in the past, the CDC recommends sitting or lying down for 15 minutes after the vaccination. ? VIS sheet provided: Yes ? See Immunization Form in [employer] for details of immunizations administered today. If patient reports dizziness, vision changes or ringing in the ears post vaccination ? please have patient sit or lie down for 15 minutes. Jessica Fregoso APRN.CNP 04/13/2018 3:57 PM Signed This is a 78 year old female who presents today with: Patient presents with: Recheck HISTORY OF PRESENT ILLNESS: Cha Bills is a 78 year old female. Patient presents with: Recheck ? COPD Follows with pulm. Refers that she had a chest Ct and had a couple of nodules. To follow-up in a year. She also has an appt for pulm testing next week and a follow- up with pulmonology scheduled on 05/02. ? Sleep Apnea. Had repeat sleep study -- doesn't have sleep apnea. Pulmonology did start a little O2 overnight. ? ? A. Fib Follows with coag clinic. Follows with cardiology - has been seen in the last 6 months -- returns at the end of May for recheck. No problems with coumadin. No abnormal bleeding. No chest pain. No palpitations. Constipation No futher constipation. Scheduled for colonoscopy No hematochezia/melena. ? Hypothyroidism + hair falling out. Noticing thinning. Some looser stools. Very dry skin. Hyperlipidemia Due for labs. No muscle/joint pains. Insomnia/anxiety Continues xanax at bedtime. No misuse. 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 - Mental disorder anxiety - Obstructive sleep apnea (adult) (pediatric) - Osteopenia - Snoring - Thyroid disorder hypothyroidism - Vitamin D deficiency PAST SURGICAL HISTORY Procedure Laterality Date - CATARACT EXTRACTION HX 05/2013 Left Eye - CATARACT EXTRACTION HX 07/2013 Right Eye - COLONOSCOP W/ OR W/O [facility] SPEC 07/01/2011 Colonoscopy - COLONOSCOP W/ OR W/O [facility] SPEC 05/22/2015 flexible sigmoidoscopy - DANDC, DIAG AND/OR THERAPEUTIC 11/04/2010 - PAST SURGICAL HISTORY OF Dental surgery - PAST SURGICAL HISTORY OF 10/2010 Removal of squamous cell cancer perianal area - PAST SURGICAL HISTORY OF 04/26/12 Sigmoid colectomy - REMOVAL OF TONSILS,<12 Y/O Tonsillectomy ALLERGIES Codeine; Penicillins MEDICATIONS Current Outpatient Prescriptions: warfarin (COUMADIN) 2 mg tablet Take 1 tablet by mouth once daily. Take as directed. risedronate (ACTONEL) 35 mg tablet Take 1 tablet by mouth once each week. docusate sodium (COLACE) 100 mg capsule Take 1 capsule by mouth twice daily as needed. potassium chloride SR (MICRO-K) 10 mEq CR capsule Take 1 capsule by mouth twice daily. warfarin (COUMADIN) 1 mg tablet 2mg MonFri and 1mg other days levothyroxine (SYNTHROID) 150 mcg tablet Take 150mcg daily on the weekdays, and 125mcg on the weekends. Take on an empty stomach, for thyroid. levothyroxine (SYNTHROID) 125 mcg tablet Take 150mcg daily on the weekdays, and 125mcg on the weekends. Take on an empty stomach, for thyroid. CALCIUM CARBONATE/VITAMIN D3 (VITAMIN D-3 ORAL) Take by mouth. ASCORBIC ACID (VITAMIN C ORAL) Take by mouth. diltiazem CD (CARDIZEM CD, CARTIA XT) 240 mg 24 hr capsule Take 240 mg by mouth once daily. atorvastatin (LIPITOR) 20 mg tablet Take 1 tablet by mouth once daily. Mometasone-Formoterol (DULERA) 200-5 mcg/actuation HFAA Inhale 2 Inhalation as instructed twice daily. fluticasone 50 mcg/actuation nasal spray Use 1 Hope in each nostril once daily. acetaminophen (TYLENOL EXTRA STRENGTH) 500 mg tablet Take by mouth as needed. albuterol HFA (VENTOLIN HFA) 90 mcg/actuation INHALATION inhaler Inhale 1 Puff as instructed once daily as needed. No current facility-administered medications for this visit. FAMILY HISTORY Problem Relation Age of Onset - Heart Mother - Heart Father - other (diabetic [Other]) Maternal Grandmother Social History Marital status: Spouse name: Years of education: Number of children: Social History Main Topics Smoking status: Never Smoker Smokeless tobacco: Never Used Alcohol use: Yes 0.6 oz/week Glasses of wine: 1 per week Comment: 1 glass weekly on Sundays Drug use: No EXAM: BP 124/76 (BP Site: Left Arm, BP Position: Sitting, BP Cuff Size: Regular Adult) Pulse 68 Resp 12 Wt 90.3 kg (199 lb) BMI 34.70 kg/m? PHYSICAL EXAM: General Appearance: Well appearing, alert, in no acute distress, well-hydrated, well nourished.. Skin: Skin color, texture, turgor normal, no suspicious rashes or lesions. Head: Normocephalic, no masses, lesions, tenderness or abnormalities. Eyes: Anicteric sclera. Extraocular movements are intact. . Neck: Supple, no adenopathy; thyroid symmetric, normal size, no bruits. Lungs: Lungs clear to auscultation. No wheezing, rhonchi, rales. Heart: Positive findings: irregular rhythm Extremities: No deformities, trace ankle edema, No skin discoloration, clubbing or cyanosis. Good capillary refill. . ASSESSMENT/PLAN: 1. Atrial fibrillation, unspecified type (HCC) - ICD9: 427.31, ICD10: I48.91 (primary diagnosis) Continue to follow with coag clinic and cardiology. 2. Chronic obstructive pulmonary disease, unspecified COPD type (HCC) - ICD9: 496, ICD10: J44.9 Continue to follow with pulm. 3. SALENA (obstructive sleep apnea) - ICD9: 327.23, ICD10: G47.33 Reports no longer has sleep apnea. However did start wearing home O2 at bedtime. 4. Need for vaccination - ICD9: V05.9, ICD10: Z23 - ADMIN OF INFLUENZA VACCINE - INFLUENZA SEASONAL HIGH DOSE AGE 65+ 5. Screening breast examination - ICD9: V76.10, ICD10: Z12.31 - Set up for mammogram, yearly mammogram recommended - Follow up for annual exam in one year. - DAYRON SCREENING 6. Hypomagnesemia - ICD9: 275.2, ICD10: E83.42 - MAGNESIUM BLD 7. Chronic anticoagulation - ICD9: V58.61, ICD10: Z79.01 - CBC + DIFF 8. Hypothyroidism, unspecified type - ICD9: 244.9, ICD10: E03.9 - check TSH today - TSH BLD 9. Hyperlipidemia with target LDL less than 100 - ICD9: 272.4, ICD10: E78.5 - to be determined upon return of lab results - Continue current medication. - LIPID PANEL BASIC - COMP METABOLIC PANEL Discussed treatment plan and patient voices understanding. Patient's questions answered appropriately. Medications and potential side effects were discussed and patient voices understanding. Return to the office as scheduled or as needed for worsening/no improvement. DEVIN Nichols APRN.CNP 04/13/2018 3:30 PM Signed 1. Labs today. 2. Flu shot today. 3. Same medications. 4. Get mammogram. 5. Get colonoscopy. 6. Recheck in 6 months. Referring Provider: SELF [200] Allergies As of Date: 04/13/2018 Noted Allergy Reaction CODEINE 10/13/2010 16 - Unknown PENICILLINS 10/13/2010 16 - Unknown Date Reviewed: 04/13/2018 Reviewed by: Lynnette Skelton Mold Inspector - Fully Assessed Reason for Visit: Recheck [92] Primary Visit Diagnosis:Atrial fibrillation, unspecified type (HCC) [I48.91] Other Visit Diagnoses:Chronic obstructive pulmonary disease, unspecified COPD type (HCC) [J44.9] SALENA (obstructive sleep apnea) [G47.33] Need for vaccination [Z23] Screening breast examination [Z12.31] Hypomagnesemia [E83.42] Chronic anticoagulation [Z79.01] Hypothyroidism, unspecified type [E03.9] Hyperlipidemia with target LDL less than 100 [E78.5] Order(s):ADMIN OF INFLUENZA VACCINE [[id number]] Order #: [id number]: 1 INFLUENZA SEASONAL HIGH DOSE AGE 65+ [[id number]] Order #: [id number] DAYRON SCREENING [9753027] Order #: [id number] FUTURE TSH BLD [SQTSH] Order #: [id number] FUTURE LIPID PANEL BASIC [SQLIPB] Order #: [id number] FUTURE COMP METABOLIC PANEL [SQCMP] Order #: [id number] FUTURE MAGNESIUM BLD [SQMG1] Order #: [id number] FUTURE CBC + DIFF [SQCBCDIF] Order #: [id number] FUTURE Prescriptions as of 04/13/2018 Sig: WARFARIN 2 MG TABLET Take 1 tablet by mouth once d* RISEDRONATE 35 MG TABLET Take 1 tablet by mouth once e* DOCUSATE SODIUM 100 MG CAPSULE Take 1 capsule by mouth twice* POTASSIUM CHLORIDE ER 10 MEQ * Take 1 capsule by mouth twice* WARFARIN 1 MG TABLET 2mg MonFri and 1mg other days LEVOTHYROXINE 150 MCG TABLET Take 150mcg daily on the week* LEVOTHYROXINE 125 MCG TABLET Take 150mcg daily on the week* VITAMIN D-3 ORAL Take by mouth. VITAMIN C ORAL Take by mouth. DILTIAZEM SR 240 MG 24 HR CAP Take 240 mg by mouth once fatimah* ATORVASTATIN 20 MG TABLET Take 1 tablet by mouth once d* MOMETASONE-FORMOTEROL HFA 200* Inhale 2 Inhalation as instru* * FLUTICASONE 50 MCG/ACTUATION * Use 1 Hope in each nostril o* * ACETAMINOPHEN 500 MG TABLET Take by mouth as needed. * ALBUTEROL SULFATE HFA 90 MCG/* Inhale 1 Puff as instructed o* Problem List As Of Date 04/13/2018 Noted Resolved Other symptoms involving digestive system(787.9*INVALID FOR*12/20/2013 Non-healing surgical wound [T81.89XA] INVALID FOR*12/20/2013 Other malignant neoplasm of other specified sit*INVALID FOR*12/20/2013 Anal cancer (HCC) [C21.0] INVALID FOR* More... DVT (deep venous thrombosis) (HCC) [I82.409] INVALID FOR*10/21/2016 More... Urinary frequency [R35.0] INVALID FOR*12/20/2013 Hypomagnesemia [E83.42] INVALID FOR* More... Unspecified malignant neoplasm of other specifi*INVALID FOR*12/20/2013 Abnormal barium enema [R93.3] INVALID FOR*12/20/2013 Abnormal x-ray [R93.8] INVALID FOR*12/20/2013 Antithrombin deficiency (HCC) [D68.59] INVALID FOR* More... Post-traumatic wound infection (HCC) [T14.8XXA,*INVALID FOR* More... Wound discharge [T14.8XXA] INVALID FOR*12/20/2013 More... Chronic anticoagulation [Z79.01] INVALID FOR* More... Anxiety [F41.9] INVALID FOR* More... A-fib (HCC) [I48.91] INVALID FOR* More... SALENA (obstructive sleep apnea) [G47.33] INVALID FOR* More... COPD (chronic obstructive pulmonary disease) (H*INVALID FOR* More... Hypothyroid [E03.9] INVALID FOR* More... Hyperlipidemia with target LDL less than 100 [E*INVALID FOR* More... SUMMARY [V999.95] INVALID FOR* More... Preventive measure [Z29.9] INVALID FOR* More... Hearing loss [H91.90] INVALID FOR* More... Insomnia [G47.00] INVALID FOR* More... Tremors of nervous system [R25.1] INVALID FOR* More... Cancer of skin, squamous cell [C44.92] INVALID FOR* Accidental fall [W19.XXXA] INVALID FOR* More... Age-related osteoporosis with current pathologi*INVALID FOR* More... Other instructions from your clinician: 1. Labs today. 2. Flu shot today. 3. Same medications. 4. Get mammogram. 5. Get colonoscopy. 6. Recheck in 6 months. Disposition: Return in about 6 months (around 10/11/2018), or if symptoms worsen or fail to improve, for recheck. Follow-up and Disposition History Recorded Encounter Status:Closed by JESSICA FREGOSO CNP on 04/13/18 ECHO, COMPLETE W/ Observed: 02/07/2018 Status: F Source: [facility] CONTRAST 6:28 PM [facility] REPOSITORY [facility] Cardiovascular Services [address] [place] [address] Echo Complete W/ Contrast 02/07/18 1253 MR#: [id number] Acct: [id number] Name: CHA BILLS Rep #: [id number] : 1940 78 From: Tom Mccullough MD Attending Dr: Sharath Melendez MD Status: REG CLI Ordering Dr: Sharath Melendez MD Date: 02/07/18 Location: [facility] Sex: F C Admitted: Reason For Study: dyspnea/SOB Procedure This was a 2D Doppler, Color Flow transthoracic echocardiogram. The exam was of poor technical quality due to body habitus. The study was technically difficult. Contrast injection was performed. Exam performed in department. Left Ventricle Normal LV size. Left ventricular systolic function is normal. The estimated ejection fraction is 60 %. No regional wall motion abnormalities noted. Right Ventricle Normal RV size. Normal systolic function. Atria The left atrium is mildly enlarged. Normal right atrium. No doppler evidence for ASD. Mitral Valve There is no mitral annular calcification. Normal mitral valve. Mild (1+) mitral valve insufficiency. Tricuspid Valve Normal tricuspid valve. Mild tricuspid valve insufficiency. Right ventricular systolic pressure estimated to be 38 mmHg. Aortic Valve Trisinus/trileaflet aortic valve. Mild focal aortic valve thickening. Pulmonic Valve The pulmonic valve is not well visualized. Trivial pulmonic valve insufficiency. Great Vessels Normal sized aortic root. Pericardium/Pleural No pericardial effusion. Medication 22 gauge I.V. with prn adaptor inserted into right arm. Diluted definity 3.0ml given slow IV push to enhance endocardial definition. MMode/2D Measurements AND Calculations LVIDd: 5.4 cm IVSd: 1.1 cm Ao root diam: 3.4 cm LVIDs: 3.7 cm LVPWd: 1.1 cm LA dimension: 4.0 cm RVDd: 3.0 cm FS: 32.4 % LAV(MOD-bp): 62.0 ml LA A4 area: 21.0 cm2 RA A4 area: 17.8 cm2 LAV(MOD-bp) Indexed: 32.2 ml/m2 LAV(MOD-sp2): 62.5 ml LAV(MOD-sp4): 63.6 ml Doppler Measurements AND Calculations MV E max dayne: 98.9 cm/sec Lat Peak E' Dayne: 10.6 cm/sec Med Peak E' Dayne: 9.2 cm/sec MV A max dayne: 80.3 cm/sec E/E' lat: 9.3 E/E' med: 10.8 MV E/A: 1.2 Ao V2 max: 179.4 cm/sec LV V1 max: 134.5 cm/sec PA V2 max: 112.5 cm/sec Ao max P.9 mmHg LV V1 max P.2 mmHg TR max dayne: 294.6 cm/sec TR max P.7 mmHg Interpretation Summary The study was technically difficult. Contrast injection was performed. Left ventricular systolic function is normal. The estimated ejection fraction is 60 %. The left atrium is mildly enlarged. Mild (1+) mitral valve insufficiency. Mild tricuspid valve insufficiency. Mild focal aortic valve thickening. Trivial pulmonic valve insufficiency. Right ventricular systolic pressure estimated to be 38 mmHg. Transmitral diastolic flow velocities suggest diastolic dysfunction (pseudonormal pattern). Ordering Physician: Sharath Melendez Referring Physician: Sharath Melendez V Performed By: Skylar Leonard, RDCS, RVT 02/07/18 1828 Date Tom Mccullough MD CC: Vel Sanderson MD; Sharath Melendez MD Date Dictated: 02/07/18 1253 Date Transcribed: 02/07/18 1828 Spray Dry Operator: Signed CHEST WITHOUT Observed: 01/13/2018 Status: F Source: [place] CONTRAST 2:51 PM [facility] REPOSITORY [facility] Imaging Services [address] [place] [address] Chest without Contrast MR#: [id number] Acct: [id number] Name: CHA BILLS Rep #: [id number] : 1940 F 77 From: Antonio Magana MD PCP: Vel Sanderson MD Status: REG CLI Study: Chest without Contrast Date of Exam: 01/13/18 Exam# [id number] Ordering Dr: Sharath Melendez MD STUDY: CT CHEST/THORAX WITHOUT CONTRAST REASON FOR EXAM: Female, 77 years old. Restrictive lung disease with hypoxia. RADIATION DOSAGE (If Supplied By Facility): CTDIvol = ( 20.15 ) mGy, DLP = ( 570.74 ) mGycm TECHNIQUE: Transaxial imaging was performed without the administration of intravenous contrast material. Multiplanar coronal and sagittal images were reformatted. Individualized dose optimization techniques were used for this CT. COMPARISON: PA and lateral chest x-ray November 24, 2017. FINDINGS: 5 x 4 x 3 mm noncalcified nodule seen in the superior aspect of the right middle lobe abutting the minor fissure (series 2 image 52, series 602 image 82). 2-3 mm teardrop shaped nodule versus scar seen at the anterior periphery of the right middle lobe on series 2 image 58. There is a lentiform 5 x 3 mm pleural-based nodule in the posterolateral basilar right lower lobe (series 2 image 65, series 602 image 169). 2-3 mm groundglass nodular density seen in the posterolateral right lower lobe just above this (series 2 image 60, series 602 image 176). Linear subsegmental scarring or atelectasis noted in the posterior basilar right lower lobe 1 mm calcified granuloma in the posterior right upper lobe on series 2 image 32. There is focal scarring or subsegmental atelectasis in the inferior left base abutting the diaphragm. There is no demonstrated pleural abnormality. There is borderline cardiomegaly. There is early calcification along the superior aspect of the mitral valve annulus. Normal mediastinum. Normal hilar regions. Normal unenhanced pulmonary arteries. The mid ascending aorta is 4.3 x 4.25 cm (series 602 image 101, series 601 image 130). At the mid aortic arch just beyond the takeoff of left carotid artery the aortic diameter is 3.1 cm. The mid descending thoracic aorta (series 602 image 176, series 601 image 123) is 2.4 x 2.35 cm. There is a severe compression fracture deformity of the T4 vertebrae with some retropulsion of bone into the anterior spinal canal. There are also old healed fracture deformities of the body of the sternum, as well as the posterolateral right fourth rib and posterior left first rib. There are multi-level degenerative changes of the thoracic spine. There is a 10 degree levoscoliosis centered at T9-10. There is no demonstrated abnormality of the visualized upper abdomen. CT/Chest without Contrast IMPRESSION: 1. There are no findings of chronic interstitial fibrosis or emphysematous disease. Minor scarring or subsegmental atelectasis seen in the inferior lung bases. 2. There are a few sub-6 mm pulmonary nodules, as described. Per Fleischner guidelines, in a low risk patient, this does not require specific radiographic follow-up. In a higher-risk patient, one-year follow-up CT is advised to document stability. 3. Borderline cardiac enlargement. 4. There is 4.3 cm fusiform aneurysmal dilatation of the ascending aorta. One might also consider one-year follow-up to document stability here. 5. Severe compression fracture deformity of the T4 vertebra with some retropulsion of bone into the anterior spinal canal. There are also healed fracture deformities of the sternum, posterolateral right fourth rib, and posterior left first rib. There is a 10 degree levoscoliosis centered at T9-10. Electronically Signed: Femi Magana MD at 15:53 EDT , Service support , CC: Vel Sanderson MD; Sharath Melendez MD Spray Dry Operator: Signed VITAMIN D,25 HYDROXY Collected: 11/24/2017 Status: F Source: ARIAN[facility] 2:46 PM [facility] REPOSITORY TYPE CODE TESTS RESULT OUT OF RANGE REFERENCE UNITS LAB L506.1000 29.95-100.01 ng/mL Normal Vitamin D 31.6 25-OH Result Comment: Vitamin D 25(OH) Status Range Deficiency <20 ng/mL (50nmol/L) Insuffciency 20 - 30 ng/mL (50 - 75 nmol/L) Sufficiency 30 - 100 ng/mL (75 - 250 nmol/L) Toxicity >100 ng/mL (>250 nmol/L) Performed By: #### L506.1000 #### [facility] [address] [place], [place], [address] COMPREHENSIVE METABOLIC Collected: 11/24/2017 Status: F [facility] PM [facility] REPOSITORY TYPE CODE TESTS RESULT OUT OF RANGE REFERENCE UNITS LAB L501.0100 74-106 mg/dL Normal GLU 97 Result Comment: Please note revised GLUCOSE reference range effective 2017. LAB L501.1000 7-18 mg/dL Normal BUN 11 LAB L501.1100 0.55-1.02 mg/dL Normal CREAT,SERUM 0.82 Result Comment: The validity of the calculated GFR AND GFRAA in patients over 70 years has not been determined. Clinical correlation is essential. LAB L501.1110 >60 mL/min Normal EST GFR 72 Result Comment: Non- GFR Calc LAB L501.1115 >60 mL/min Normal EST GFR - AA 87 Result Comment: GFR Calc LAB L501.1300 10-20 RATIO Normal BUN/CRE 13.4 LAB L501.1500 6.4-8.2 g/dL T Normal PROT 8.0 LAB L501.1800 3.2-5.0 g/dL Normal ALB 3.6 LAB L501.1950 2.2-4.2 g/dL High GLOB 4.4 LAB L501.2000 0.9-2.4 RATIO Low A/G 0.8 LAB L501.2200 8.5-10.1 mg/dL CA Normal 8.6 LAB L501.4100 15-37 U/L High AST 49 Result Comment: Moderate Hemolysis, Result may be falsely increased. LAB L501.4305 45-117 U/L Normal ALK P 89 LAB L501.4405 13-56 U/L Normal ALT 29 LAB L501.4600 0.20-1.00 mg/dL Normal T BILI 0.70 LAB L501.5300 136-145 mmol/L Normal NA 140 LAB L501.5600 3.5-5.1 mmol/L Normal K 4.4 Result Comment: Moderate Hemolysis, Result may be falsely increased. LAB L501.5900 98-107 mmol/L Normal CL 106 LAB L501.6100 21.0-32.0 mmol/L Normal CO2 26.0 LAB L501.6200 5-15 Normal 8 GAP Performed By: #### L500.4050, L500.4100, L501.5200, L501.9520 #### [facility] [address] [place], [place], [id number] LIPID PROFILE Collected: 11/24/2017 Status: F Source: [place] 2:46 PM [facility] REPOSITORY TYPE CODE TESTS RESULT OUT OF RANGE REFERENCE UNITS LAB L501.4900 200 mg/dL Normal CHOL 148 Result Comment: <200 mg/dL Desirable 200-240 mg/dL Borderline >240 mg/dL High Risk LAB L501.5000 mg/dL Normal TRIG 102 Result Comment: The drugs N-Acetylcysteine and Metamizole may falsely depress this assay. Serum Triglycerides Reference Interval Normal <150 mg/dL Borderline high 150 - 199 mg/dL High 200 - 499 mg/dL Very High > or = 500 mg/dL LAB L501.6400 mg/dL Normal HDL 73 Result Comment: The drugs N-Acetylcysteine and Metamizole may falsely depress this assay. Reference Range HDL <40 mg/dL Low HDL Cholesterol HDL >or= 60 mg/dL High HDL Cholesterol LAB L501.6500 0-130 mg/dL Normal LDL 55 LAB L501.6600 5-40 mg/dL Normal VLDL 20 Performed By: #### L500.4050, L500.4100, L501.5200, L501.9520 #### [facility] [address] [place], [place], [id number] MAGNESIUM Collected: 11/24/2017 Status: F Source: [facility] 2:46 PM [facility] REPOSITORY TYPE CODE TESTS RESULT OUT OF RANGE REFERENCE UNITS LAB L501.5200 1.6-2.6 mg/dL Normal MG 1.8 Result Comment: Moderate Hemolysis, Result may be falsely increased. Performed By: #### L500.4050, L500.4100, L501.5200, L501.9520 #### [facility] [address] [place], [address] THYROID STIM HORMONE Collected: 11/24/2017 Status: F Source: MAJESTIC (TSH) 2:46 PM [facility] REPOSITORY TYPE CODE TESTS RESULT OUT OF RANGE REFERENCE UNITS LAB L501.9520 0.358-3.74 uIU/mL Normal TSH 3.10 Performed By: #### L500.4050, L500.4100, L501.5200, L501.9520 #### [facility] [address] [place], [address] CHEST PA AND LATERAL Observed: 11/24/2017 Status: F Source: [facility] 2:45 PM [facility] REPOSITORY [facility] Imaging Services [address] [place] [address] Chest PA and Lateral MR#: [id number] Acct: [id number] Name: CHA BILLS Rep #: [id number] : 1940 F 77 From: Aparna Dent MD PCP: Vel Sanderson MD Status: REG CLI Study: Chest PA and Lateral Date of Exam: 11/24/17 Exam# [id number] Ordering Dr: Sharath Melendez MD STUDY: X-RAY CHEST REASON FOR EXAM: Female, 77 years old. Shortness of breath TECHNIQUE: Frontal and lateral views of the chest were obtained. COMPARISON: March 10, 2017 FINDINGS: The lungs are underaerated with increased AP diameter on the lateral view. There are increased interstitial markings throughout the lungs. There are no focal airspace opacities. There is no demonstrated pleural abnormality. The cardiac silhouette is normal in size. The mediastinum and hilar regions are unremarkable. Normal visualized pulmonary arteries. There is atherosclerotic calcification of the thoracic aorta. There are diffuse degenerative changes of the visualized spine. There is stable mild compression of a lower thoracic vertebral body. There are degenerative changes in both shoulders. There is no demonstrated abnormality of the visualized upper abdomen. RAD/Chest PA and Lateral IMPRESSION: No acute cardiopulmonary abnormalities or changes. Stable COPD with mild diffuse fibrosis. Electronically Signed: Aparna Dent MD at 23:53 EDT Tel Direct: [phone], Service support , CC: Vel Sanderson MD; Sharath Melendez MD Spray Dry Operator: Signed PROGRESS Observed: 11/10/2017 Status: COMPLETED Source: [place] 2:[address] [facility] REPOSITORY HNO ID: [id number] Author: Jessica (Test Hole Driller) Ildefonso Service: (none) Author Type: Nurse Practitioner Type: Progress Notes Filed: 11/10/2017 5:28 PM Note Text: This is a 77 year old female who presents today with: Patient presents with: Medication Follow-up HISTORY OF PRESENT ILLNESS: Cha Bills is a 77 year old female. Patient presents with: Medication Follow-up Refers problems with constipation. States taking colace twice daily without effect. Has been about 3 days. No n/v. No hematochezia/melena. Due for colonoscopy at the end of the year. Refers + urinary leakage. Has been going on for years, but worse recently since more problems with constipation. Denies UTI symptoms. COPD Has been controlled. Pt questions if she truly does have COPD. Sleep Apnea. Has not been using CPAP since her fall/accident. Refers didn't use in the hospital/rehab. Awaiting follow-up with specialist. Zach Bonilla Follows with coag clinic. Follows with cardiology. Hypothyroidism Due for labs. Hyperlipidemia Due for labs. No muscle/joint pains. REVIEW OF SYSTEMS GENERAL: No weight loss, malaise or fevers/chills. + fatigue. After working hard, will go back and forth from hot/cold. HEENT: Negative for frequent or significant headaches, No changes in hearing or vision. NECK: Negative for lumps, goiter, pain and significant neck swelling RESPIRATORY: Negative for cough, hemoptysis, wheezing, dyspnea or shortness of breath CARDIOVASCULAR: Negative for chest pain - other than an occasional tickle which lasts for just a second, orthopnea, or palpitations. Dependent swelling when on feet. GI: No nausea, vomiting. No hematochezia/melena. No heartburn or reflux symptoms. + constipation. : No history of dysuria, frequency. + leakage. MUSCULOSKELETAL: Negative for joint pain or swelling. SKIN: Negative for lesions, rash, and itching ENDOCRINE: Negative for cold or heat intolerance. NEURO: No history of headaches, syncope, paralysis, seizures or tremors PAST MEDICAL HISTORY: PAST MEDICAL HISTORY Diagnosis Date - Anxiety - Arrhythmia atrial fibrillation - Asthma - Atrial fibrillation (HCC) - Blood dyscrasia history of DVT - Cardiomegaly - Fatigue - Fracture of wrist right - History of rectal or anal cancer - HTN (hypertension) - Hyperglycemia - Malignant neoplasm of anus, unspecified site - Mental disorder anxiety - Obstructive sleep apnea (adult) (pediatric) - Osteopenia - Snoring - Thyroid disorder hypothyroidism - Vitamin D deficiency PAST SURGICAL HISTORY Procedure Laterality Date - CATARACT EXTRACTION HX 05/2013 Left Eye - CATARACT EXTRACTION HX 07/2013 Right Eye - COLONOSCOP W/ OR W/O [email or web address]] SPEC 07/01/2011 Colonoscopy - COLONOSCOP W/ OR W/O [facility] [email or web address]] SPEC 05/22/2015 flexible sigmoidoscopy - [facility], DIAG AND/OR THERAPEUTIC 11/04/2010 - PAST SURGICAL HISTORY OF Dental surgery - PAST SURGICAL HISTORY OF 10/2010 Removal of squamous cell cancer perianal area - PAST SURGICAL HISTORY OF 04/26/12 Sigmoid colectomy - REMOVAL OF TONSILS,<12 Y/O Tonsillectomy ALLERGIES Codeine; Penicillins MEDICATIONS Current Outpatient Prescriptions: docusate sodium (COLACE) 100 mg capsule Take 1 capsule by mouth twice daily as needed. warfarin (COUMADIN) 2 mg tablet Take 1 tablet by mouth once daily. Take as directed. potassium chloride SR (MICRO-K) 10 mEq CR capsule Take 1 capsule by mouth twice daily. warfarin (COUMADIN) 1 mg tablet 2mg MonFri and 1mg other days levothyroxine (SYNTHROID) 150 mcg tablet Take 150mcg daily on the weekdays, and 125mcg on the weekends. Take on an empty stomach, for thyroid. risedronate (ACTONEL) 35 mg tablet Take 1 tablet by mouth once each week. ALPRAZolam (XANAX) 0.5 mg tablet Take 1 tablet by mouth at bedtime as needed. levothyroxine (SYNTHROID) 125 mcg tablet Take 150mcg daily on the weekdays, and 125mcg on the weekends. Take on an empty stomach, for thyroid. CALCIUM CARBONATE/VITAMIN D3 (VITAMIN D-3 ORAL) Take by mouth. ASCORBIC ACID (VITAMIN C ORAL) Take by mouth. diltiazem CD (CARDIZEM CD, CARTIA XT) 240 mg 24 hr capsule Take 240 mg by mouth once daily. atorvastatin (LIPITOR) 20 mg tablet Take 1 tablet by mouth once daily. Mometasone-Formoterol (DULERA) 200-5 mcg/actuation HFAA Inhale 2 Inhalation as instructed twice daily. fluticasone 50 mcg/actuation nasal spray Use 1 Hope in each nostril once daily. acetaminophen (TYLENOL EXTRA STRENGTH) 500 mg tablet Take by mouth as needed. albuterol HFA (VENTOLIN HFA) 90 mcg/actuation INHALATION inhaler Inhale 1 Puff as instructed once daily as needed. No current facility-administered medications for this visit. FAMILY HISTORY Problem Relation Age of Onset - Heart Mother - Heart Father - diabetic [Other] [OTHER] Maternal Grandmother Social History Marital status: Spouse name: Years of education: Number of children: Social History Main Topics Smoking status: Never Smoker Smokeless status: Never Used Alcohol use: Yes 0.6 oz/week 1 Glasses of wine per week Comment: 1 glass weekly on Sundays Drug use: No EXAM: BP 122/64 (BP Site: Left Arm, BP Position: Sitting, BP Cuff Size: Large Adult) Pulse 74 Resp 12 Wt 87.5 kg (193 lb) BMI 33.65 kg/m2 PHYSICAL EXAM: General Appearance: Well appearing, alert, in no acute distress, well-hydrated, well nourished.. Skin: Skin color, texture, turgor normal, no suspicious rashes or lesions. Head: Normocephalic, no masses, lesions, tenderness or abnormalities. Eyes: Anicteric sclera. Extraocular movements are intact. . Neck: Supple, no adenopathy; thyroid symmetric, normal size, no bruits. Lungs: Lungs clear to auscultation. No wheezing, rhonchi, rales. Heart: RRR without murmur, gallop, or rubs. No ectopy. Abd: - soft -- + BS X 4 quads. Extremities: No deformities, clubbing or cyanosis. Trace edema. Skin dry. Good capillary refill. . Neurologic: Gait normal. Reflexes normal and symmetric. Sensation grossly intact.. ASSESSMENT/PLAN: 1. Hypothyroidism, unspecified type - ICD9: 244.9, ICD10: E03.9 (primary diagnosis) - check TSH -- going to do out of facility -- order given. 2. Anxiety - ICD9: 300.00, ICD10: F41.9 Controlled. OARRS website checked and validated. All prescriptions have been APPROPRIATELY filled. No suspicious activity was identified.- 11/10/2017 by Jessica Fregoso APRN.TRANSPORTATION MAINTENANCE SPECIALIST - Refill -- ALPRAZOLAM 0.5 MG TABLET 3. Hyperlipidemia with target LDL less than 100 - ICD9: 272.4, ICD10: E78.5 - to be determined upon return of lab results - Continue current medication. - Lipids - COMP METABOLIC PANEL 4. Chronic obstructive pulmonary disease, unspecified COPD type (HCC) - ICD9: 496, ICD10: J44.9 - Stable. Follow with pulmonology 5. Chronic anticoagulation - ICD9: V58.61, ICD10: Z79.01 Follow with coag clinic. 6. Hypomagnesemia - ICD9: 275.2, ICD10: E83.42 - MAGNESIUM BLD 7. Hypokalemia - ICD9: 276.8, ICD10: E87.6 - COMP METABOLIC PANEL 8. Vitamin D deficiency - ICD9: 268.9, ICD10: E55.9 - VITAMIN D 25 HYDROXY 9. Atrial fibrillation, unspecified type (HCC) - ICD9: 427.31, ICD10: I48.91 - regular rhythm today. - continue per cardiology. 10. Acute constipation - ICD9: 564.00, ICD10: K59.00 Continue colace. Can add miralax 1-2 times daily until effect, then just daily as needed. Discussed treatment plan and patient voices understanding. Patient's questions answered appropriately. Medications and potential side effects were discussed and patient voices understanding. Return to the office as scheduled or as needed for worsening/no improvement. Jessica Fregoso APRN.CNP CNOV Observed: 11/10/2017 Status: COMPLETED Source: [place] 2:00 PM [facility] REPOSITORY Office Visit (FAMPWS) CHA BILLS ([id number]) 1940 F Date Time Provider Department 11/10/17 2:00 PM JESSICA FREGOSO (LIZBETH) FAMPWS During your visit today, we recorded the following information about you: Pulse Respiration Blood pressure Weight 74/minute 12/minute 122/64 87.5 kg Jessica Fregoso APRN.CNP 11/10/2017 5:28 PM Addendum This is a 77 year old female who presents today with: Patient presents with: Medication Follow-up HISTORY OF PRESENT ILLNESS: Cha Bills is a 77 year old female. Patient presents with: Medication Follow-up Refers problems with constipation. States taking colace twice daily without effect. Has been about 3 days. No n/v. No hematochezia/melena. Due for colonoscopy at the end of the year. Refers + urinary leakage. Has been going on for years, but worse recently since more problems with constipation. Denies UTI symptoms. COPD Has been controlled. Pt questions if she truly does have COPD. Sleep Apnea. Has not been using CPAP since her fall/accident. Refers didn't use in the hospital/rehab. Awaiting follow-up with specialist. Zach Bonilla Follows with coag clinic. Follows with cardiology. Hypothyroidism Due for labs. Hyperlipidemia Due for labs. No muscle/joint pains. REVIEW OF SYSTEMS GENERAL: No weight loss, malaise or fevers/chills. + fatigue. After working hard, will go back and forth from hot/cold. HEENT: Negative for frequent or significant headaches, No changes in hearing or vision. NECK: Negative for lumps, goiter, pain and significant neck swelling RESPIRATORY: Negative for cough, hemoptysis, wheezing, dyspnea or shortness of breath CARDIOVASCULAR: Negative for chest pain - other than an occasional ANDquot;tickleANDquot; which lasts for just a second, orthopnea, or palpitations. Dependent swelling when on feet. GI: No nausea, vomiting. No hematochezia/melena. No heartburn or reflux symptoms. + constipation. : No history of dysuria, frequency. + leakage. MUSCULOSKELETAL: Negative for joint pain or swelling. SKIN: Negative for lesions, rash, and itching ENDOCRINE: Negative for cold or heat intolerance. NEURO: No history of headaches, syncope, paralysis, seizures or tremors PAST MEDICAL HISTORY: PAST MEDICAL HISTORY Diagnosis Date - Anxiety - Arrhythmia atrial fibrillation - Asthma - Atrial fibrillation (HCC) - Blood dyscrasia history of DVT - Cardiomegaly - Fatigue - Fracture of wrist right - History of rectal or anal cancer - HTN (hypertension) - Hyperglycemia - Malignant neoplasm of anus, unspecified site - Mental disorder anxiety - Obstructive sleep apnea (adult) (pediatric) - Osteopenia - Snoring - Thyroid disorder hypothyroidism - Vitamin D deficiency PAST SURGICAL HISTORY Procedure Laterality Date - CATARACT EXTRACTION HX 05/2013 Left Eye - CATARACT EXTRACTION HX 07/2013 Right Eye - COLONOSCOP W/ OR W/O [email or web address]] SPEC 07/01/2011 Colonoscopy - COLONOSCOP W/ OR W/O [facility] [email or web address]] SPEC 05/22/2015 flexible sigmoidoscopy - DANDamp;C, DIAG AND/OR THERAPEUTIC 11/04/2010 - PAST SURGICAL HISTORY OF Dental surgery - PAST SURGICAL HISTORY OF 10/2010 Removal of squamous cell cancer perianal area - PAST SURGICAL HISTORY OF 04/26/12 Sigmoid colectomy - REMOVAL OF TONSILS,ANDlt;12 Y/O Tonsillectomy ALLERGIES Codeine; Penicillins MEDICATIONS Current Outpatient Prescriptions: docusate sodium (COLACE) 100 mg capsule Take 1 capsule by mouth twice daily as needed. warfarin (COUMADIN) 2 mg tablet Take 1 tablet by mouth once daily. Take as directed. potassium chloride SR (MICRO-K) 10 mEq CR capsule Take 1 capsule by mouth twice daily. warfarin (COUMADIN) 1 mg tablet 2mg MonFri and 1mg other days levothyroxine (SYNTHROID) 150 mcg tablet Take 150mcg daily on the weekdays, and 125mcg on the weekends. Take on an empty stomach, for thyroid. risedronate (ACTONEL) 35 mg tablet Take 1 tablet by mouth once each week. ALPRAZolam (XANAX) 0.5 mg tablet Take 1 tablet by mouth at bedtime as needed. levothyroxine (SYNTHROID) 125 mcg tablet Take 150mcg daily on the weekdays, and 125mcg on the weekends. Take on an empty stomach, for thyroid. CALCIUM CARBONATE/VITAMIN D3 (VITAMIN D-3 ORAL) Take by mouth. ASCORBIC ACID (VITAMIN C ORAL) Take by mouth. diltiazem CD (CARDIZEM CD, CARTIA XT) 240 mg 24 hr capsule Take 240 mg by mouth once daily. atorvastatin (LIPITOR) 20 mg tablet Take 1 tablet by mouth once daily. Mometasone-Formoterol (DULERA) 200-5 mcg/actuation HFAA Inhale 2 Inhalation as instructed twice daily. fluticasone 50 mcg/actuation nasal spray Use 1 Hope in each nostril once daily. acetaminophen (TYLENOL EXTRA STRENGTH) 500 mg tablet Take by mouth as needed. albuterol HFA (VENTOLIN HFA) 90 mcg/actuation INHALATION inhaler Inhale 1 Puff as instructed once daily as needed. No current facility-administered medications for this visit. FAMILY HISTORY Problem Relation Age of Onset - Heart Mother - Heart Father - diabetic [Other] [OTHER] Maternal Grandmother Social History Marital status: Spouse name: Years of education: Number of children: Social History Main Topics Smoking status: Never Smoker Smokeless status: Never Used Alcohol use: Yes 0.6 oz/week 1 Glasses of wine per week Comment: 1 glass weekly on Sundays Drug use: No EXAM: BP 122/64 (BP Site: Left Arm, BP Position: Sitting, BP Cuff Size: Large Adult) Pulse 74 Resp 12 Wt 87.5 kg (193 lb) BMI 33.65 kg/m2 PHYSICAL EXAM: General Appearance: Well appearing, alert, in no acute distress, well-hydrated, well nourished.. Skin: Skin color, texture, turgor normal, no suspicious rashes or lesions. Head: Normocephalic, no masses, lesions, tenderness or abnormalities. Eyes: Anicteric sclera. Extraocular movements are intact. . Neck: Supple, no adenopathy; thyroid symmetric, normal size, no bruits. Lungs: Lungs clear to auscultation. No wheezing, rhonchi, rales. Heart: RRR without murmur, gallop, or rubs. No ectopy. Abd: - soft -- + BS X 4 quads. Extremities: No deformities, clubbing or cyanosis. Trace edema. Skin dry. Good capillary refill. . Neurologic: Gait normal. Reflexes normal and symmetric. Sensation grossly intact.. ASSESSMENT/PLAN: 1. Hypothyroidism, unspecified type - ICD9: 244.9, ICD10: E03.9 (primary diagnosis) - check TSH -- going to do out of facility -- order given. 2. Anxiety - ICD9: 300.00, ICD10: F41.9 Controlled. OARRS website checked and validated. All prescriptions have been APPROPRIATELY filled. No suspicious activity was identified.- 11/10/2017 by Jessica Fregoso APRN.TRANSPORTATION MAINTENANCE SPECIALIST - Refill -- ALPRAZOLAM 0.5 MG TABLET 3. Hyperlipidemia with target LDL less than 100 - ICD9: 272.4, ICD10: E78.5 - to be determined upon return of lab results - Continue current medication. - Lipids - COMP METABOLIC PANEL 4. Chronic obstructive pulmonary disease, unspecified COPD type (HCC) - ICD9: 496, ICD10: J44.9 - Stable. Follow with pulmonology 5. Chronic anticoagulation - ICD9: V58.61, ICD10: Z79.01 Follow with coag clinic. 6. Hypomagnesemia - ICD9: 275.2, ICD10: E83.42 - MAGNESIUM BLD 7. Hypokalemia - ICD9: 276.8, ICD10: E87.6 - COMP METABOLIC PANEL 8. Vitamin D deficiency - ICD9: 268.9, ICD10: E55.9 - VITAMIN D 25 HYDROXY 9. Atrial fibrillation, unspecified type (HCC) - ICD9: 427.31, ICD10: I48.91 - regular rhythm today. - continue per cardiology. 10. Acute constipation - ICD9: 564.00, ICD10: K59.00 Continue colace. Can add miralax 1-2 times daily until effect, then just daily as needed. Discussed treatment plan and patient voices understanding. Patient's questions answered appropriately. Medications and potential side effects were discussed and patient voices understanding. Return to the office as scheduled or as needed for worsening/no improvement. Jessica Fregoso APRN.TRANSPORTATION MAINTENANCE SPECIALIST Referring Provider: VEL SANDERSON [[id number]] Allergies As of Date: 11/10/2017 Noted Allergy Reaction CODEINE 10/13/2010 16 - Unknown PENICILLINS 10/13/2010 16 - Unknown Date Reviewed: 11/10/2017 Reviewed by: Lynnette Skelton Mold Inspector - Fully Assessed Reason for Visit: Medication Follow-up [270] Primary Visit Diagnosis:Hypothyroidism, unspecified type [E03.9] Other Visit Diagnoses:Anxiety [F41.9] Hyperlipidemia with target LDL less than 100 [E78.5] Chronic obstructive pulmonary disease, unspecified COPD type (HCC) [J44.9] Chronic anticoagulation [Z79.01] Hypomagnesemia [E83.42] Hypokalemia [E87.6] Vitamin D deficiency [E55.9] Atrial fibrillation, unspecified type (HCC) [I48.91] Acute constipation [K59.00] Order(s):ALPRAZolam (XANAX) 0.5 mg tabletTake 1 tablet by mouth at bedtime as needed for Anxiety for up to 30 days.Disp: 30 tabletRfl: 0 COMP METABOLIC PANEL [SQCMP] Order #: [id number] FUTURE MAGNESIUM BLD [SQMG1] Order #: [id number] FUTURE VITAMIN D 25 HYDROXY [SQVITD] Order #: [id number] FUTURE Prescriptions as of 11/10/2017 Sig: ALPRAZOLAM 0.5 MG TABLET Take 1 tablet by mouth at bed* DOCUSATE SODIUM 100 MG CAPSULE Take 1 capsule by mouth twice* WARFARIN 2 MG TABLET Take 1 tablet by mouth once d* POTASSIUM CHLORIDE ER 10 MEQ * Take 1 capsule by mouth twice* WARFARIN 1 MG TABLET 2mg MonFri and 1mg other days LEVOTHYROXINE 150 MCG TABLET Take 150mcg daily on the week* RISEDRONATE 35 MG TABLET Take 1 tablet by mouth once e* LEVOTHYROXINE 125 MCG TABLET Take 150mcg daily on the week* VITAMIN D-3 ORAL Take by mouth. VITAMIN C ORAL Take by mouth. DILTIAZEM SR 240 MG 24 HR CAP Take 240 mg by mouth once fatimah* ATORVASTATIN 20 MG TABLET Take 1 tablet by mouth once d* MOMETASONE-FORMOTEROL HFA 200* Inhale 2 Inhalation as instru* * FLUTICASONE 50 MCG/ACTUATION * Use 1 Hope in each nostril o* * ACETAMINOPHEN 500 MG TABLET Take by mouth as needed. * ALBUTEROL SULFATE HFA 90 MCG/* Inhale 1 Puff as instructed o* Problem List As Of Date 11/10/2017 Noted Resolved Other symptoms involving digestive system(787.9*INVALID FOR*12/20/2013 Non-healing surgical wound [T81.89XA] INVALID FOR*12/20/2013 Other malignant neoplasm of other specified sit*INVALID FOR*12/20/2013 Anal cancer (HCC) [C21.0] INVALID FOR* More... DVT (deep venous thrombosis) (HCC) [I82.409] INVALID FOR*10/21/2016 More... Urinary frequency [R35.0] INVALID FOR*12/20/2013 Hypomagnesemia [E83.42] INVALID FOR* More... Unspecified malignant neoplasm of other specifi*INVALID FOR*12/20/2013 Abnormal barium enema [R93.3] INVALID FOR*12/20/2013 Abnormal x-ray [R93.8] INVALID FOR*12/20/2013 Antithrombin deficiency (HCC) [D68.59] INVALID FOR* More... Post-traumatic wound infection (HCC) [T14.8XXA,*INVALID FOR* More... Wound discharge [T14.8XXA] INVALID FOR*12/20/2013 More... Chronic anticoagulation [Z79.01] INVALID FOR* More... Anxiety [F41.9] INVALID FOR* More... A-fib (HCC) [I48.91] INVALID FOR* More... [place] (obstructive sleep apnea) [G47.33] INVALID FOR* More... COPD (chronic obstructive pulmonary disease) (H*INVALID FOR* More... Hypothyroid [E03.9] INVALID FOR* More... Hyperlipidemia with target LDL less than 100 [E*INVALID FOR* More... SUMMARY [V999.95] INVALID FOR* More... Preventive measure [Z29.9] INVALID FOR* More... Hearing loss [H91.90] INVALID FOR* More... Insomnia [G47.00] INVALID FOR* More... Tremors of nervous system [R25.1] INVALID FOR* More... Cancer of skin, squamous cell [C44.92] INVALID FOR* Accidental fall [W19.XXXA] INVALID FOR* More... Age-related osteoporosis with current pathologi*INVALID FOR* More... Prescriptions ordered this encounter Disp Refills Start End ALPRAZOLAM 0.5 MG TABLET 30 t* 0 11/10/2017 12/10/2017 Class: Print RX Route: ORAL Sig: Take 1 tablet by mouth at bedtime as needed for Anxiety for up to 30 days. Medications Discontinued During This Encounter ALPRAZolam (XANAX) 0.5 mg tablet 30 t* 5 04/22/2017 11/10/2017 Class: Print RX Route: ORAL Sig: Take 1 tablet by mouth at bedtime as needed. Disc: Reason for discontinue is not on file. Disposition: Return in about 6 months (around 05/12/2018), or if symptoms worsen or fail to improve. Follow-up and Disposition History Recorded Encounter Status:Closed by JESSICA FREGOSO CNP on 11/10/17 CARDIOLOGY VISIT Observed: 08/30/2017 Status: F Source: MAJESTIC REPORT 3:13 PM [facility] REPOSITORY [facility] [address] [place] [address] [address] [place] [address] OFFICE VISIT Date of Service: 08/30/17 MR#: [id number] Acct: [id number] Name: CHA BILLS Rep #: [id number] : 1940 Provider: Najma Davis Age/Sex: 77/F Location: [facility] [place] Status: Signed HPI HPI Details: CHA BILLS, is a 77 F who presents to the office today for a cardiovascular followup. She has a history of paroxysmal atrial fibrillation/flutter. Echocardiogram in 2011 demonstrated left ventricular systolic functions normal with an estimated ejection fraction of 60%. Mild mitral valve insufficiency. Moderate tricuspid valve insufficiency. Moderate focal aortic valve thickening with mild aortic valve insufficiency. Stress test negative for ischemia. She did have one episode of rectal bleeding. She was seen by general surgery. She does have hemorroids and has not had any problem since. Her INR is checked by her PCP. She does not have any chest pain/heaviness. She does have some SOB with exertion but this is not any worse than previous. She does not have any palpitations. She does not have any near syncope/syncope. She does occasionally have edema. Intake Vital Signs08/30/17 Height 5 ft 3 in 08/30/17 Weight: 199 lb 08/30/17 Body Mass Index (BMI) 35.2 08/30/17 Blood Pressure 120/62 08/30/17 Pulse Rate 64 08/30/17 Pulse Ox 98 Intake Visit Reasons: 6 M FU Allergies penicillin G Allergy (Verified 08/30/17 12:59) Itching codeine Adverse Reaction (Verified 08/30/17 12:59) Upset Stomach Medications ALPRAZolam [Xanax] 0.5 mg PO QHS PRN PRN 09/16/15 [History Confirmed 08/12/17] Diltiazem HCl [Diltiazem 24Hr ER] 240 mg PO DAILY 09/16/15 [History Confirmed 08/12/17] Potassium Chloride [Klor-Con 10] 10 meq PO BID 09/16/15 [History Confirmed 08/12/17] Warfarin [Coumadin ([facility])] 1 mg PO DAILY 09/16/15 [History Confirmed 08/11/17] acetaminophen 325 mg tablet 650 mg PO Q4H PRN 06/28/17 [History Confirmed 08/12/17] albuterol sulfate HFA 90 mcg/actuation aerosol inhaler 1 puff INHALATION Q6H 06/28/17 [History Confirmed 08/12/17] fluticasone 50 mcg/actuation nasal spray,suspension 1 spray INTRANASAL QDAY PRN 06/28/17 [History Confirmed 08/12/17] levothyroxine 125 mcg tablet 125 mcg PO QDAY #90 tab 06/28/17 [Rx Confirmed 08/12/17] mometasone-formoterol HFA 200 mcg-5 mcg/actuation aerosol inhaler 2 puff INHALATION BID 06/28/17 [History Confirmed 08/12/17] aamipnsg-tzsgytl-fxmq-lutein tablet mcg PO 06/28/17 [History Confirmed 08/12/17] risedronate 35 mg tablet 35 mg PO QWEEK 06/28/17 [History Confirmed 08/12/17] atorvastatin 20 mg tablet 20 mg PO QHS #90 tab 08/03/17 [Rx Confirmed 08/12/17] warfarin 2 mg tablet 2 mg PO 2XW tab 08/30/17 [History Confirmed 08/30/17] Ejection fraction %: 60 to 64 PFS Medical History HTN (hypertension) with goal to be determined (Chronic) Atrial flutter (Chronic) Paroxysmal atrial fibrillation (Chronic) Syncope and collapse (Chronic) Hyperlipidemia (Chronic) Hypothyroidism (Chronic) Morbid obesity (Chronic) Recurrent falls (Chronic) DVT (deep venous thrombosis) (Acute) Anxiety (Chronic) Cardiomegaly (Chronic) GERD (gastroesophageal reflux disease) (Chronic) 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) Rectal bleeding (Chronic) Thyroid disorder (Chronic) constipation (Chronic) History of cystitis (Resolved) History of forearm fracture (Resolved) History of anxiety (Inactive) History of atrial fibrillation (Inactive) Surgical History History of D AND C (Chronic) History of cataract removal with insertion of prosthetic lens (Chronic) History of colonoscopy (Chronic) History of tonsillectomy (Chronic) history of anal surgery (Chronic) history of sigmoid colectomy (Chronic) Family History Mother Heart disease CAD (coronary artery disease) Father Heart disease CAD (coronary artery disease) Sister CAD (coronary artery disease) COPD (chronic obstructive pulmonary disease) Sister Hypertension Social History Smoking Status: Former smoker alcohol intake: current alcohol intake frequency: holidays/special occasions only Alcohol type: wine substance use type: does not use what type of physical activity do you participate in: none ROS Const Const: Positive for fatigue (Admits to taking more naps daily) and weakness; negative for difficulty sleeping, excessive sweating, frequent falls or headache(s) Eyes Eyes: Negative for loss of peripheral vision, transient loss of vision, blurry vision or double vision ENT ENT: Negative for Nosebleed/epistaxis, Negative for balance problems, Negative for headache(s), Negative for dizziness Cardio Chest Pain: Yes Frequency: other (has had 2 episodes left sided chest burning over the past 2 months after dinner) Character: other (burning) Onset: at rest, with meals (after a meal) Location: left chest Duration: brief Edema: None Muscle aches with walking: None Resp Respiratory: Positive for SOB with activity (When walking up wheelchair ramp) and crackles (Bilateral bases); negative for SOB at rest, SOB orthopnea\SOB lying down or paroxysmal nocturnal dyspnea GI GI: Positive for heartburn; negative nausea : Negative for hematuria Musc Musc: Negative for muscle aches/ myalgia, muscle weakness, joint pain or balance problems Skin Skin: Negative non-healing lesions, unusual bruising or rash Neuro Neuro: Positive for weakness, Negative for frequent falls, Negative for blurry vision, Negative for headache(s), Negative for dizziness, Negative for lightheadedness, Negative for orthostatic symptoms, Negative for double vision Pillo Hematologic/Lymphatic: Negative for easy bruising Endo Endo: Positive for fatigue (Admits to taking more naps daily); negative for excessive sweating or increased thirst/drinking Psych Psych: Negative for anxiety or depression Allergy Allergy/Immunology: Negative for hives, Negative for rash Cardiology Exam Const Appearance: cooperative, no acute distress and well developed Orientation: alert, awake and oriented x3 Limitations: physical limitations (in WC) Head Head: normocephalic and atraumatic Mouth: moist mucous membranes Eyes General: appearance normal, both eyes and all related structures Conjunctivae: conjunctivae normal Pupils: PERRL EOM: EOM intact bilaterally Neck Neck: normal visual inspection, no lymphadenopathy and no JVD Carotids: Negative bruit Neck Mass: Negative Neck mass Chest Chest inspection: normal inspection of the chest and symmetric chest movement Auscultation: Bilateral: Diminished Lung Sounds Cardio Palpation: normal PMI Rate: regular rate Rhythm: regular rhythm Heart sounds: S1 normal and S2 normal; negative rub, gallop or murmur GI GI: normal to inspection, soft, no hepatosplenomegaly and bowel sounds present; negative tender Neuro General: alert, awake, oriented x3, CN's II-XI intact bilaterally and moves all extremities Extremities Pulses: Normal: Right Posterior Tibial Pulse, Left Posterior Tibial Pulse, Right Radial Pulse, Left Radial Pulse Lower Extremity Edema: None: Bilateral Psych Psychological: normal affect Assessment AND Plan 1. Paroxysmal atrial fibrillation I48.0 Plan - CROW Mata Patient has not had any symptomatic recurrence. She is on Coumadin. This is managed by her primary care doctor. 2. HTN (hypertension) with goal to be determined I10 Plan - CROW Mata Blood pressure is well controlled on current medications, we do not recommend any changes at this time. 3. Pure hypercholesterolemia E78.00; E78.0 Plan - CROW Mata Recent lipid profile demonstrates total cholesterol 149, HDL 64, LDL 69. She will continue with current aggressive medical management. Plan Detail Additional Comments - CROW Mata The above patient was discussed with Dr. Mccullough, he agrees with plan of care. Thank you for allowing us to participate in patient's plan of care, if you have any questions please do not hesitate to call. This note was generated using a voice recognition system and there may be incorrect words, spelling or punctuation errors that were not noted when reviewing the office note prior to saving. Follow Up 9 Months (PFM) Coding Level of Care Code Off vis,est,level 3 Diagnoses Paroxysmal atrial fibrillation I48.0 HTN (hypertension) with goal to be determined I10 Pure hypercholesterolemia E78.00; E78.0 Hyperlipidemia type: pure hypercholesterolemia Coding Level of Care Code Off vis,est,level 3 Diagnoses Paroxysmal atrial fibrillation I48.0 HTN (hypertension) with goal to be determined I10 Pure hypercholesterolemia E78.00; E78.0 Hyperlipidemia type: pure hypercholesterolemia 08/30/17 1405 <Electronically signed by Najma MARIA> Date Najma MARIA 08/30/17 1513<Electronically signed by Tom Mccullough MD> Cosigner Signature: Date (if applicable) Tom Mccullough MD CC: Vel Sanderson MD SURGERY VISIT REPORT Observed: 08/12/2017 Status: F Source: MAJESTIC 3:57 PM [facility] [place] [address] [address] OFFICE VISIT Date of Service: 08/11/17 MR#: [id number] Acct: [id number] Name: CHA BILLS Rep #: [id number] : 1940 Provider: Doris Trent PA-C Age/Sex: 77/F Location: [facility] Status: Signed Intake Vital Signs08/11/17 Height 5 ft 0.5 in 08/11/17 Weight: 193 lb 08/11/17 Body Mass Index (BMI) 37.0 Intake Visit Reasons: RECTAL BLEEDING DUE TO CONSTIPATION/KIKA Heater Furnace Required: No Is patient in pain?: No Allergies penicillin G Allergy (Verified 08/11/17 14:50) Itching codeine Adverse Reaction (Verified 08/11/17 14:50) Upset Stomach Medications ALPRAZolam [Xanax] 0.5 mg PO QHS PRN PRN 09/16/15 [History Confirmed 08/12/17] Diltiazem HCl [Diltiazem 24Hr ER] 240 mg PO DAILY 09/16/15 [History Confirmed 08/12/17] Potassium Chloride [Klor-Con 10] 10 meq PO BID 09/16/15 [History Confirmed 08/12/17] Warfarin [Coumadin (PBKC)] 1 mg PO DAILY 09/16/15 [History Confirmed 08/11/17] acetaminophen 325 mg tablet 650 mg PO Q4H PRN 06/28/17 [History Confirmed 08/12/17] albuterol sulfate HFA 90 mcg/actuation aerosol inhaler 1 puff INHALATION Q6H 06/28/17 [History Confirmed 08/12/17] fluticasone 50 mcg/actuation nasal spray,suspension 1 spray INTRANASAL QDAY PRN 06/28/17 [History Confirmed 08/12/17] levothyroxine 125 mcg tablet 125 mcg PO QDAY #90 tab 06/28/17 [Rx Confirmed 08/12/17] mometasone-formoterol HFA 200 mcg-5 mcg/actuation aerosol inhaler 2 puff INHALATION BID 06/28/17 [History Confirmed 08/12/17] avihrlcl-txfmabq-cens-lutein tablet mcg PO 06/28/17 [History Confirmed 08/12/17] risedronate 35 mg tablet 35 mg PO QWEEK 06/28/17 [History Confirmed 08/12/17] atorvastatin 20 mg tablet 20 mg PO QHS #90 tab 08/03/17 [Rx Confirmed 08/12/17] [facility] Medical History History of cystitis (Chronic) History of anxiety (Chronic) History of atrial fibrillation (Chronic) Esophageal reflux (Chronic) History of venous thrombosis and embolism (Chronic) Hypothyroidism (Chronic) Morbid obesity (Chronic) History of carcinoma in situ of anal canal (Chronic) Recurrent falls (Chronic) History of forearm fracture (Chronic) Anxiety (Acute) Cardiomegaly (Acute) HTN (hypertension) with goal to be determined (Acute) Rectal bleeding (Acute) Thyroid disorder (Acute) constipation (Acute) Surgical History History of D AND C (Acute) History of cataract removal with insertion of prosthetic lens (Acute) History of colonoscopy (Acute) History of tonsillectomy (Acute) history of anal surgery (Acute) history of sigmoid colectomy (Acute) Family History Mother Heart disease Father Heart disease Social History Smoking Status: Former smoker alcohol intake: current alcohol intake frequency: holidays/special occasions only HPI HPI HPI: CHA BILLS, is a 77 F who presents to the office today due to rectal bleeding. Patient is currently on Coumadin for A Fib. She notes a long history of constipation. She notes having normal bowel movement last Wednesday and when she went to have an additional bowel movement she noted bright red blood in the toilet. She noted since that episode she has not had any bleeding. She notes having normal bowel movements. She does have a history of anal cancer. Her last sigmoidoscopy by Dr. Acosta was in 05/2015, which was unremarkable. Patient also notes having a skin cyst on the left neck and a skin lesion on the back of the head. ROS General General: Yes colon cancer and weakness HEENT HEENT: Yes eye injury and eye surgery Endo Endocrine: Yes thyroid disease Skin Skin: No rash or changing moles Breast Breast: No left breast lump, right breast lump, nipple discharge, breast pain, abnormal mammogram, abnormal US or breast enlargement Musc Musculoskeletal: Yes back problems, arthritis and joint pain Cardio Cardiovascular: Yes heart disease, atrial fibrillation and high blood pressure Psych Psychiatric: Yes anxiety Resp Respiratory: Yes asthma, Yes shortness of breath Gastro Gastrointestinal: Yes constipation, Yes blood in stool Pillo Hematologic: Yes blood thinners Neuro Neurologic: Yes weakness Exam Const General: cooperative, healthy appearing, comfortable, no acute distress HENMT Head: normal to inspection Other: Left posterior head- seborrheic keratosis. Benign Neck Neck mass: No Other: Left anterior lateral neck- sebaceous cyst. Non-infected. Chest Breast Palpation: No nipple discharge Resp Effort AND Inspection: normal respiratory effort Auscultation: clear to auscultation bilaterally Cardio Rate: regular rate Rhythm: regular rhythm GI Inspection: normal to inspection Palpation: soft Auscultation: normal bowel sounds Skin General: no rashes or lesions noted Neuro Cranial Nerves: CN's II-XI intact bilaterally Extrem General: normal to inspection Psych Appearance: grossly normal Assessment AND Plan Problems 1. Rectal bleeding K62.5 Plan - Likely internal hemorrhoid - If rectal bleeding occurs again will set up for a scope with Dr. Acosta - Left neck sebaceous cyst may have excised however is no bother to the patient. I would recommend observation - Seborrheic keratosis. Benign. No excision recommended - Follow-up in May for repeat c-scope Coding Level of Care Code Off vis,new,level 3 Diagnoses Rectal bleeding K62.5 08/12/17 1557 <Electronically signed by Doris Trent PA-C> Date Doris Trent PA-C Cosigner Signature: Date (if applicable) CC: ALLERGIES ALLERGIES DATE TYPE / CODE NAME / CODE REACTION SEVERITY SOURCE 07/20/2018 Drug enoxaparin/[id number] GI upset, SV [place] Allergy/416 210(RXNORM) itching at [facility] 333947([facility] ED CT) Repository 07/14/2018 Drug codeine/[id number] Upset Stomach Unknown [place] Allergy/416 (RXNORM) [facility] 783059([facility] ED CT) Repository 07/14/2018 Drug penicillin Itching Unknown [place] Allergy/416 G/[id number](RXNOR [facility] 113591([email or web address] ED CT) Repository 10/13/2010 DRUG CODEINE UNKNOWN [facility] INGREDI/[address] 891349(SNOM Repository ED CT) 10/13/2010 Drug PENICILLINS UNKNOWN [facility] Class/[address] 1003(SNOMED Repository CT) ENCOUNTERS ENCOUNTERS ADMIT/DISCHARGE ACCOUNT ADMITTING ENCOUNTER LOCATION SOURCE NUMBER CLASS 08/05/2018 [id number] Ambulatory BMSBuilding:B [place] MS[facility] Repository 07/29/2018 [id number] Ambulatory BMSBuilding:[place] [facility] Repository 07/26/2018 [id number] Ambulatory BMSBuilding:[place] MS.CF.[facility] Repository 07/22/2018 [id number] Ambulatory BMSBuilding:[place] [facility] Repository 07/20/2018 [id number] Ambulatory BMSBuilding:B [place] [facility] Repository 07/18/2018 [id number] Ambulatory BMSBuilding:[place] [facility] Repository 07/14/2018/07/14/20 [id number] Ambulatory BMSBuilding:B [place] 18 MS.[facility] Repository 07/11/2018 [id number] Ambulatory BMSBuilding:B [place] [facility] Repository 07/06/2018/07/06/20 [id number] Ambulatory [address] Hospital ing:ENRoom: Repository AC11 06/01/2018/06/01/20 [id number] Ambulatory BMSBuilding:B [place] 18 MS.[facility] Repository 04/13/2018 [id number] Ambulatory [facility] Hospital ing:LABSPEC Repository 04/13/2018/04/13/20 [id number] Ambulatory [address] Repository 04/13/2018/04/14/20 [id number] Ambulatory [address] Repository 02/07/2018 [id number] [facility] ing:[facility]S Repository 02/07/2018 [id number] [facility] 01/13/2018 [id number] Ambulatory [facility] ing:CT Repository 11/24/2017 [id number] Ambulatory [facility] ing:LAB.FUTUR Repository E 11/10/2017/11/12/19 [id number] Ambulatory [address] Repository 08/30/2017/08/30/19 [id number] Ambulatory BMSBuilding:[place] [address] [facility] Repository 08/30/2017 [id number] Ambulatory BMSBuilding:[place] [facility] Repository 08/11/2017/08/11/19 [id number] Ambulatory BMSBuilding:B [place] 18 MS.[facility] Repository PAYERS PAYERS ENCOUNTER GUARANTOR PAYER SUBSCRIBER SOURCE 08/05/2018 CHA A Primary CHA A [place] [id number] Insurance:[facility]: Community [place] MEDICARE[place] [id number] Number: Repository [address]Yrn: 330 [id number] [phone] (HP) Date:9276-77-49RA [address] [address]VF: 08/05/2018 Secondary NOT GIVENUNK [place] Insurance:SELF PAY [facility] Number: Effective Repository Date:2018-08-05 07/29/2018 CHA A Primary CHA A [place] [id number] Insurance:[facility] CARE FORESTALDOB: Community BAYBERR[place] MEDICAREPolicy [id number], [place] Number: Repository [address]Qia: 330 [id number] [phone] (HP) Date:4055-35-36ZR [address] [place] [address] 35914MW: 07/29/2018 Secondary NOT GIVENUNK [place] Insurance:SELF PAY [facility] Number: Effective Repository Date:2018-07-29 07/26/2018 CHA A Primary CHA A [place] [id number] Insurance:[facility] CARE FORESTALDOB: Community BAYBERRY MEDICAREPolicy [id number], [place] Number: Repository [address]Wjm: (330) [id number] [phone] () Date:9024-97-42YW [address] [facility] [place] [address]MZ: 07/26/2018 Secondary NOT GIVENUNK [place] Insurance:SELF PAY [facility] Number: Effective Repository Date:2018-07-26 07/22/2018 CHA A Primary CHA A [place] [id number] Insurance:[facility] CARE FORESTALDOB: Community BAYBERRY MEDICAREPolicy [id number], [place] Number: Repository [address]Pse: (330) [id number] [phone] () Date:1319-00-91PN [address] [place] [address]40[address]NR: 07/22/2018 Secondary NOT GIVENUNK [place] Insurance:SELF PAY [facility] Number: Effective Repository Date:2018-07-22 07/20/2018 CHA A Primary CHA A [place] [id number] Insurance:[facility] C[facility]ESTMARY [facility]ALTHCAREOB: Community B[place] MEDICAREPolicy [id number], [place] Number: Repository [address]Vlj: (330) [id number] [phone] () Date:7055-73-49HT [address] [place] [address] 017[address]KO: 07/20/2018 Secondary NOT GIVENUNK [place] Insurance:SELF PAY [facility] Number: Effective Repository Date:2018-07-20 07/18/2018 CHA A Primary CHA A [place] [id number] Insurance:[facility] CARE FOREST[facility]ALTHCAREOB: Community B[place] MEDICAREPolicy [id number], [place] Number: Repository [address]Ftt: (330) [id number] [phone] (HP) Date:3222-31-65VN [address] [place] [address] 04643ZT: 07/18/2018 Secondary NOT GIVENUNK [place] Insurance:SELF PAY [facility] Number: Effective Repository Date:2018-07-18 07/14/2018 CHA A Primary CHA A [place] [id number] Insurance:[facility] CARE FORESTALDOB: Community B[place] MEDICAREPolicy [id number], [place] Number: Repository [address]Omo: 330 [id number] [phone] (HP) Date:2823-89-69YW [address] [place] [address] 40093MK: 07/14/2018 Secondary NOT GIVENUNK [place] Insurance:SELF PAY [facility] Number: Effective Repository Date:2018-07-13 07/11/2018 CHA A Primary NOT GIVENUNK [place] [id number] Insurance:SELF [place]Y [place] Number: Effective Repository [address]Qvh: (330) Date:2018-07-11 [phone] () 07/06/2018 CHA A Primary CHA A [place] [id number] Insurance:[facility] CARE FORESTALDOB: Community [place] MEDICAREPolicy [id number], [place] Number: Repository [address]Ehm: (330 [id number] [phone] (HP) Date:5909-32-34DK [address] [place] [address] 19443CO: 07/06/2018 Secondary NOT GIVENUNK [place] Insurance:SELF PAY [facility] Number: Effective Repository Date:2018-06-01 06/01/2018 CHA A Primary HCA A [place] [id number] Insurance:[facility] CARE FORESTALDOB: Community B[place] MEDICAREPolicy [id number], [place] Number: Repository [address]Jfn: (330 [id number] [phone] (HP) Date:9917-04-92YQ [address] [place] [address] 62091MX: 06/01/2018 Secondary NOT GIVENUNK [place] Insurance:SELF PAY [facility] Number: Effective Repository Date:2018-06-01 04/13/2018 CHA A Primary CHA A [place] [id number] Insurance:[facility] CARE FORESTALDOB: Community B[place]ERR[place] MEDICAREPolicy [id number], [place] Number: Repository [address]Ieu: (330) [id number] [phone] (HP) Date:4466-68-88IT [address] [facility] [address]TW: 04/13/2018 Secondary NOT GIVENUNK [place] Insurance:SELF PAY [facility] Number: Effective Repository Date:2018-04-13 02/07/2018 CHA A Primary CHA A [place] [id number] Insurance:[facility] CARE FORESTALDOB: Community B[place] MEDICAREPolicy [id number], [place] Number: Repository [address]Bod: (330) [id number] [phone] (HP) Date:8954-79-52QC [address] [place] [address] 74161EB: 02/07/2018 Secondary NOT GIVENUNK [place] Insurance:SELF PAY [facility] Number: Effective Repository Date:2018-01-24 02/07/2018 CHA A Primary CHA A [place] [id number] Insurance:[facility] CARE FORESTALDOB: Community [place] MEDICAREPolicy [id number], [place] Number: Repository [address]Nui: (330) [id number] [phone] (HP) Date:2145-75-56NW [address] [place] [address] 89995HH: 02/07/2018 Secondary NOT GIVENUNK [place] Insurance:SELF PAY [facility] Number: Effective Repository Date:2018-02-07 01/13/2018 CHA A Primary CHA A [place] [id number] Insurance:[facility] CARE FORESTALDOB: Community [place] MEDICAREPolicy [id number], [place] Number: Repository [address]Zbm: (330) [id number] [phone] (HP) Date:7448-05-12AS [address] [place] [address] 029[address]GS: 01/13/2018 Secondary NOT GIVENUNK [place] Insurance:SELF PAY [facility] Number: Effective Repository Date:2018-01-03 11/24/2017 CHA A Primary CHA A [place] [id number] Insurance:[facility] CARE FORESTALDOB: Community B[place] MEDICAREPolicy [id number], [place] Number: Repository [address]Yzz: 330 [id number] [phone] () Date:2073-44-81GI [address] [place] [address] 90647WG: 11/24/2017 Secondary NOT GIVENUNK [place] Insurance:SELF PAY [facility] Number: Effective Repository Date:2017-11-07 08/30/2017 CHA A Primary CHA A [place] [id number] Insurance:[facility] CARE FORESTALDOB: Community BAY[place]ERR[place] MEDICAREPolicy [id number], [place] Number: Repository [address]Smo: 330 [id number] [phone] () Date:0316-91-20WD [address] [place] [address] 00[address]JV: 08/30/2017 Secondary NOT GIVENUNK [place] Insurance:SELF PAY [facility] Number: Effective Repository Date:2017-06-23 08/30/2017 CHA A Primary CHA A [place] [id number] Insurance:[facility] CARE FORESTALDOB: Community BAYBERRY MEDICAREPolicy [id number], [place] Number: Repository [address]Ynr: 330 [id number] [phone] () Date:4351-62-42OG [address] [place] [address]ZD: 08/30/2017 Secondary NOT GIVENUNK [place] Insurance:SELF PAY [facility] Number: Effective Repository Date:2017-08-30 08/11/2017 CHA A Primary CHA A [place] [id number] Insurance:[facility] CARE FORESTALDOB: Community BAYBERR[place] MEDICAREPolicy [id number], [place] Number: Repository [address]Kht: (913) [id number] [phone] () Date:7394-07-97DY [address], [place] [address]YG: 08/11/2017 Secondary NOT GIVENUNK [place] Insurance:SELF PAY [facility]: Effective Repository Date:2017-08-09
== END 2018-07-06 08:42 | disposition home or self-care (01) ==
LOC: EN 06:08 → AC 06:10
PROVIDERS: Family Provider Internal Medicine; PCP Internal Medicine; Referring Provider Internal Medicine; Visit Provider Surgery
PROC: 0DJD8ZZ Inspection of Lower Intestinal Tract, Via Natural or Artificial Opening Endoscopic (ICD-10-PCS; CPT 45378; principal; 2018-07-06 07:25)
DX: D12.2 Benign neoplasm of ascending colon (principal); D12.3 Benign neoplasm of transverse colon; Z85.048 Personal history of other malignant neoplasm of rectum, rectosigmoid junction, and anus; I10 Essential (primary) hypertension; I48.0 Paroxysmal atrial fibrillation; E78.5 Hyperlipidemia, unspecified; E03.9 Hypothyroidism, unspecified; E66.01 Morbid (severe) obesity due to excess calories; F41.9 Anxiety disorder, unspecified; K21.9 Gastro-esophageal reflux disease without esophagitis; F32.9 Major depressive disorder, single episode, unspecified; Z68.36 Body mass index [BMI] 36.0-36.9, adult; Z85.828 Personal history of other malignant neoplasm of skin; Z86.718 Personal history of other venous thrombosis and embolism; Z79.01 Long term (current) use of anticoagulants; Z79.51 Long term (current) use of inhaled steroids; Z79.899 Other long term (current) drug therapy
CPT/HCPCS: 45380; 36416; 85610; 88305; J7120; J1610

== ENCOUNTER → 2019-04-05 | Outpatient (CLI) | payer MEDICARE, SELFPAY ==
[2019-03-07 13:59] VITALS: BMI 39.6
[2019-04-05 15:59] LABS: BNP,B-Type NATRIURETIC PEPTIDE 356.2 pg/mL (0-100)
== END | disposition home or self-care (01) ==
PROVIDERS: Family Provider Internal Medicine; PCP Internal Medicine; Referring Provider Internal Medicine Cardiovascular Disease; Visit Provider Internal Medicine Cardiovascular Disease
DX: I50.9 Heart failure, unspecified (principal); I48.0 Paroxysmal atrial fibrillation
CPT/HCPCS: 36415; 83880

== ENCOUNTER → 2019-04-14 | Outpatient (CLI) | payer MEDICARE, SELFPAY ==
[2019-03-07 13:59] VITALS: BMI 39.6
[2019-04-14 11:07] LABS: Anion Gap 3 (5-15); BUN 13 mg/dL (7-18); BUN/Creat Ratio 15.5 RATIO (10-20); Calcium,Total 9.1 mg/dL (8.5-10.1); Chloride 105 mmol/L (98-107); Creatinine, Serum 0.84 mg/dL (0.55-1.02); EST Glomerular Filtration Rate 70 mL/min (>60); Est Glom Filt Rate - Afr Amer 84 mL/min (>60); Glucose 99 mg/dL (74-106); Potassium 4.2 mmol/L (3.5-5.1); Sodium Level 141 mmol/L (136-145)
== END | disposition home or self-care (01) ==
LOC: LABSPEC 09:02
PROVIDERS: Family Provider Internal Medicine; PCP Internal Medicine; Visit Provider Internal Medicine Cardiovascular Disease
DX: I48.0 Paroxysmal atrial fibrillation (principal); I48.92 Unspecified atrial flutter; I10 Essential (primary) hypertension
CPT/HCPCS: 36415; 80048

== ENCOUNTER → 2019-05-04 | Outpatient (CLI) | payer MEDICARE, SELFPAY ==
[2019-04-24 13:08] VITALS: BMI 39.6
[2019-05-04 15:34] LABS: Absolute Lymphocyte Count 1.95 X10^3/uL (0.83-4.51); Absolute Neutrophil Count 5.2 X10^3/uL (2.0-7.7); Basophil# 0.02 X10^3/uL; Basophil% 0.2 % (0-1); Eosinophil# 0.02 X10^3/uL; Eosinophils% 0.2 % (0-5); Hematocrit 47.9 % (37-47); Hemoglobin 14.8 g/dL (12.0-15.0); Lymphocyte # 1.95 X10^3/ul (4.0); Lymphocyte % 24.3 % (19-41); Mean Corp Hgb Conc 30.9 g/dL (32-36); Mean Corpuscular Hgb 30.4 pg (27.0-32.0); Mean Corpuscular Volume 98.4 fL (81-99); Mean Platelet Vol. 10.2 fl (6.2-12.0); Monocyte# 0.82 X10^3/uL; Monocyte% 10.2 % (0-10); NRBC Flagged by Analyzer 0 % (0-5); Neutrophil # 5.19 X10^3/uL (2.7-7.7); Neutrophil % 64.9 % (47-70); Platelet Count 255 K/mm3 (150-450); RBC Distribution Width CV 14.3 % (11.6-14.6); RBC Distribution Width SD 52.1 fl (35.1-43.9); Red Blood Count 4.87 M/mm3 (4.2-5.4)
[2019-05-04 16:01] LABS: Thyroid Stim Hormone (TSH) 0.02 uIU/mL (0.358-3.74)
== END | disposition home or self-care (01) ==
LOC: MTLAB 14:05
PROVIDERS: Family Provider Internal Medicine; PCP Internal Medicine; Referring Provider Internal Medicine; Visit Provider Internal Medicine
DX: E03.9 Hypothyroidism, unspecified (principal)
CPT/HCPCS: 36415; 84443; 85025

== ENCOUNTER → 2019-07-03 12:13 | Outpatient (CLI) | payer MEDICARE, SELFPAY ==
[2019-06-08 06:28] VITALS: BMI 39.6
--- NOTE | 2019-07-03 12:14 | RAD_ITS ---
STUDY: X-RAY - LUMBAR SPINE REASON FOR EXAM: Female, 79 years old. Back pain following a recent fall. TECHNIQUE: 5 view(s) of the lumbar spine were obtained. COMPARISON: None FINDINGS: Normal lumbar lordosis. There is a mild dextroscoliosis of the lumbar spine. Grade 1 anterior listhesis of L4 on L5 without spondylolysis. There is multilevel endplate spondylosis of the lumbar vertebrae. There is multi-level degenerative disc disease with multi-level disc space narrowing. There is atherosclerotic calcification of the abdominal aorta without a demonstrated aneurysm. There is a 1.2 cm calculus in the midportion of the left kidney. RAD/L/S Spine Min 4 Views IMPRESSION: Degenerative changes of the spine, as detailed above. Grade 1 anterior listhesis of L4 on L5. Left renal calculus. Electronically Signed: Alvin Laura, at 14:08 EST , Service support ,
--- NOTE | 2019-07-03 12:14 | RAD_ITS ---
STUDY: X-RAY - THORACIC SPINE REASON FOR EXAM: Female, 79 years old. Back pain following a recent fall. TECHNIQUE: AP and lateral view(s) of the thoracic spine were obtained. COMPARISON: None. FINDINGS: There is an increase in the normal thoracic kyphosis. There is no substantial scoliosis. There is demineralization of the thoracic spine. There is multilevel disc space narrowing of the thoracic spine. Calcific calculus in the midportion of the left kidney. RAD/Thoracic Spine 3 Views IMPRESSION: Loss of height of 2 mid dorsal vertebrae. Electronically Signed: Alvin Laura, at 14:09 EST , Service support ,
== END ==
PROVIDERS: Family Provider Internal Medicine; PCP Internal Medicine; Referring Provider Physician Assistant; Visit Provider Physician Assistant
DX: M54.5 Low back pain (principal); M54.6 Pain in thoracic spine
CPT/HCPCS: 72072; 72110

== ENCOUNTER → 2019-07-25 13:02 | Outpatient (CLI) | payer MEDICARE, SELFPAY ==
[2019-07-03 12:32] VITALS: BMI 39.6
[2019-07-25 14:55] LABS: Thyroid Stim Hormone (TSH) 0.07 uIU/mL (0.358-3.74)
== END ==
PROVIDERS: Family Provider Internal Medicine; PCP Internal Medicine; Referring Provider Internal Medicine; Visit Provider Internal Medicine
DX: E03.9 Hypothyroidism, unspecified (principal)
CPT/HCPCS: 36415; 84443

== ENCOUNTER → 2019-08-21 | Outpatient (CLI) | payer MEDICARE, SELFPAY ==
[2019-08-21 14:12] VITALS: BMI 40.3
[2019-08-21 16:43] LABS: Thyroid Stim Hormone (TSH) 0.17 uIU/mL (0.358-3.74)
== END | disposition home or self-care (01) ==
LOC: LAB 15:05
PROVIDERS: PCP Internal Medicine; Referring Provider Nurse Practitioner Family; Visit Provider Nurse Practitioner Family
DX: E03.9 Hypothyroidism, unspecified (principal)
CPT/HCPCS: 36415; 84443

== ENCOUNTER → 2019-08-29 | Outpatient (CLI) | payer MEDICARE, SELFPAY ==
[2019-08-21 14:12] VITALS: BMI 40.3
--- NOTE | 2019-08-29 14:25 | CT_ITS ---
STUDY: CT CHEST WITH CONTRAST REASON FOR EXAM: Female, 79 years old. THORACIC ANEURYSM FOLLOW UP RADIATION DOSAGE (If Supplied By Facility): CTDIvol = ( 16.49 ) mGy, DLP = ( 655.93 ) mGycm TECHNIQUE: Transaxial imaging was performed following intravenous administration of IV 100mL Isovue-300. Multiplanar coronal and sagittal images were reformatted. Individualized dose optimization techniques were used for this CT. COMPARISON: Prior chest CT exam of January 13, 2018 FINDINGS: Lung landers remain expanded and clear without new consolidation, focal atelectasis or pleural effusion. There is no demonstrated pleural abnormality. Reduced size of the right middle lobe nodule now measuring 4 x 3 mm. Stable pleural based teardrop-shaped nodule of the right middle lobe, image 60 series 4. Stable pleural-based nodule of the right lower lobe, image 64 series 4. Groundglass nodule just above is no longer visualized. Stable chronic changes at the left lung base. Normal heart and pericardium. Minimal coronary calcifications. Normal mediastinum. Normal hilar regions. Normal enhanced pulmonary arteries. Minimal plaque in elongation of the thoracic aorta. The mid ascending aortic diameter is now 3.8 x 3.8 cm. Mid arch diameter is 2.1 cm. Posterior arch/proximal descending aortic diameter is 2.5 cm. The remainder of the aorta remains less than 2.5 cm. Degenerative changes of the thoracic spine. Stable upper thoracic compression deformity. Stable mild lower thoracic compression deformities. Multiple gallstones in a nondistended gallbladder. CT/Chest WITH Contrast IMPRESSION: Fusiform dilatation of the ascending aorta with a maximum diameter of 3.8 cm. Unchanged from prior exam of November 17, 2011. Decreased from the 4.3 cm measurement of January 12, 2016 where the diameter was probably over measured secondary to motion artifact. No additional acute findings or changes. Multiple pulmonary nodules as listed above are stable, reduced in size or have resolved since the prior exam. Stable chronic changes at the left lung base. Electronically Signed: Martha Cardoza MD at 21:01 EST , Service support ,
[2019-08-29 14:41] LABS: CREATININE FINGERSTICK 0.8 mg/dL (0.55-1.02); EGFR FINGERSTICK > 60.0000 mL/min (>60)
== END | disposition home or self-care (01) ==
PROVIDERS: PCP Internal Medicine; Referring Provider Internal Medicine Cardiovascular Disease; Visit Provider Internal Medicine Cardiovascular Disease
DX: I71.2 Thoracic aortic aneurysm, without rupture (principal)
CPT/HCPCS: 71260; Q9967

== ENCOUNTER → 2019-09-05 | Outpatient (CLI) | payer MEDICARE, SELFPAY ==
[2019-08-02 16:22] VITALS: BMI 39.6
[2019-08-21 14:12] VITALS: BMI 40.3
[2019-09-05 13:06] VITALS: PULSE 106; PULSE 109; PULSE 110; PULSE 112; PULSE 89; PULSE 90; PULSE 95; O2SAT 92; O2SAT 94; O2SAT 95; O2SAT 96; O2SAT 97; O2SAT 98
--- NOTE | 2019-09-05 16:15 | PCM.PSN.6M ---
PSN 6 Minute Walk Test - 6 Minute Walk Test 6 Minute Walk Test: 6 Minute Walk Test PSN:6-Minute Walk Test Start: 09/05/19 13:06 Freq: Status: Active Protocol: RESP.6MINW Document 09/05/19 13:06 ROSE (Rec: 09/05/19 13:08 ROSE [id number]) 6 Minute Walk Test Date Performed 09/05/19 Time Performed 12:30 Height 5 ft 3 in Weight: 89.811 kg Weight in Pounds 198.[address]: Sarkis Vilchis Assistive device used: Walker Pre-test Oxygen Delivery Method Room Air Pulse Ox (%) 94 Pulse Rate (60-100 beats/min) 89 Dyspnea Jaswinder Scale (0-10) 1 Exertion Jaswinder Scale (6-20) 6 1st minute Oxygen Delivery Method Room Air Pulse Ox (%) 92 Pulse Rate (60-100 beats/min) 95 2nd minute Oxygen Delivery Method Room Air Pulse Ox (%) 92 Pulse Rate (60-100 beats/min) 106 H 3rd minute Oxygen Delivery Method Room Air Pulse Ox (%) 95 Pulse Rate (60-100 beats/min) 112 H Number of Rests Taken 1 4th minute Oxygen Delivery Method Room Air Pulse Ox (%) 97 Pulse Rate (60-100 beats/min) 106 H 5th minute Oxygen Delivery Method Room Air Pulse Ox (%) 97 Pulse Rate (60-100 beats/min) 109 H 6th minute Oxygen Delivery Method Room Air Pulse Ox (%) 96 Pulse Rate (60-100 beats/min) 110 H Dyspnea Jaswinder Scale (0-10) 4 Exertion Jaswinder Scale (6-20) 14 Post-test Oxygen Delivery Method Room Air Pulse Ox (%) 98 Pulse Rate (60-100 beats/min) 90 Full Laps Walked 5 Partial Lap, Number of Tiles Walked 17 Total Distance Walked (ft) 312 - Interpretation Interpretation: The patient was able to ambulate only 312 feet over the course of 6 minutes on room air with the assistance of a walker and one break. The patient did have a mild decrease in saturation from a baseline of 94% to as low as 92% with some reflexive tachycardia. These factors are consistent with a musculoskeletal limitation exercise tolerance. - Recommendations Recommendations: No supplemental oxygen is indicated at this time.
== END | disposition home or self-care (01) ==
LOC: PSN 12:23
PROVIDERS: PCP Internal Medicine; Referring Provider Internal Medicine Critical Care Medicine; Visit Provider Internal Medicine Critical Care Medicine
DX: J45.909 Unspecified asthma, uncomplicated (principal)
CPT/HCPCS: 94618

== ENCOUNTER → 2019-09-26 | Outpatient (CLI) | payer MEDICARE, SELFPAY ==
[2019-09-13 11:29] VITALS: BMI 39.6
[2019-09-26 16:17] LABS: Thyroid Stim Hormone (TSH) 0.91 uIU/mL (0.358-3.74)
== END | disposition home or self-care (01) ==
LOC: MTLAB 14:09
PROVIDERS: PCP Internal Medicine; Referring Provider Nurse Practitioner Family; Visit Provider Nurse Practitioner Family
DX: E03.9 Hypothyroidism, unspecified (principal)
CPT/HCPCS: 36415; 84443

== ENCOUNTER → 2019-12-15 12:48 | Outpatient (CLI) | payer MEDICARE, SELFPAY ==
[2019-09-13 11:29] VITALS: BMI 39.6
[2019-12-15 14:53] LABS: Hematocrit 50.3 % (37-47); Hemoglobin 16.4 g/dL (12.0-15.0); Mean Corp Hgb Conc 32.6 g/dL (32-36); Mean Corpuscular Hgb 32.3 pg (27.0-32.0); Mean Corpuscular Volume 99.2 fL (81-99); Mean Platelet Vol. 10.4 fl (6.2-12.0); Platelet Count 281 K/mm3 (150-450); RBC Distribution Width CV 14.5 % (11.6-14.6); RBC Distribution Width SD 52.4 fl (35.1-43.9); Red Blood Count 5.07 M/mm3 (4.2-5.4); White Blood Count 5.5 K/mm3 (4.4-11.0)
[2019-12-15 15:42] LABS: International Normalized Ratio 2.5; Prothrombin Time (Protime)PT. 26.9 SECONDS (11.7-14.9)
== END ==
PROVIDERS: PCP Internal Medicine; Referring Provider Internal Medicine Cardiovascular Disease; Visit Provider Internal Medicine Cardiovascular Disease
DX: I48.0 Paroxysmal atrial fibrillation (principal); R23.3 Spontaneous ecchymoses; Z79.01 Long term (current) use of anticoagulants
CPT/HCPCS: 36415; 85027; 85610